=== PATIENT | male | born 1945 | race Caucasian/White ===

== ENCOUNTER 2017-12-27 10:21 | Outpatient (CLI) | payer MEDICARE, BC | END 2017-12-27 10:22 | disposition home or self-care (01) | LOC: LABBT 10:21 | PROVIDERS: ATTEND Orthopaedic Surgery | DX: Z01.818 Encounter for other preprocedural examination (principal); M17.11 Unilateral primary osteoarthritis, right knee | CPT/HCPCS: 86850; 86900; 86901; 87081 ==

== ENCOUNTER 2018-01-03 10:01 | Inpatient (IN) | payer MEDICARE, BC ==
[~2018-01-03 10:01] MED LIST: Ondansetron HCl/PF 4 MG/2 ML Vial ONE; PROPOFOL 200 MG/20 ML VIAL ONE; Ropivacaine 0.2% HCl/PF (40 MG/20 ML VIAL) ONE; Ropivacaine 0.5% HCl/PF (150 MG/30 ML VIAL) ONE
[2018-01-03] MEDS ORDERED: Midazolam HCl 2 mg/2 ml Vial ONE (10:36)
[2018-01-03] MEDS ORDERED: Fentanyl 100 MCG/2 ML VIAL ONE ×3 (10:36→16:10)
[2018-01-03] MEDS ORDERED: Clindamycin/D5W 600 mg/50 ml Premix Bag ONE (11:02)
[2018-01-03] MEDS ORDERED: Neomycin-Polymyxin 1 ML AMP ONE (12:19)
[2018-01-03] MEDS ORDERED: Bupivacaine HCl 0.5%/Epinephrine 1:200,000/PF 30 ml Vial ONE (12:20)
[2018-01-03] MEDS ORDERED: HYDROcodone/Acetaminophen 10/325 mg Tablet PO PRN ×2 (12:51)
[2018-01-03] MEDS ORDERED: Ropivacaine HCl/PF 250 ML in Premix Bag 1 BAG NERVE BLCK SCH (12:51)
[2018-01-03] MEDS ORDERED: Ondansetron HCl/PF 4 MG/2 ML Vial IVP PRN ×3 (12:51→16:59)
[2018-01-03] MEDS ORDERED: traMADol HCl 50 MG TAB PO PRN ×2 (12:51→15:20)
[2018-01-03] MEDS ORDERED: Promethazine HCl 25 MG/ML VIAL IM PRN ×3 (12:51→16:59)
[2018-01-03] MEDS ORDERED: Zolpidem Tartrate 5 MG TAB PO PRN ×2 (12:51→15:20)
[2018-01-03] MEDS ORDERED: Fentanyl 100 MCG/2 ML VIAL IV PRN (12:52)
[2018-01-03] MEDS ORDERED: diphenhydrAMINE 25 MG CAP PO PRN (15:20)
[2018-01-03] MEDS ORDERED: Acetaminophen 325 MG TAB PO PRN (15:20)
[2018-01-03] MEDS ORDERED: DEXTROMETHORPHAN PO PRN (15:23)
[2018-01-03] MEDS ORDERED: PROMETHAZINE PO PRN (15:23)
[2018-01-03] MEDS ORDERED: ALPRAZolam 0.5 MG TAB PO PRN (15:23)
[2018-01-03] MEDS ORDERED: guaiFENesin ER 600 MG TAB PO PRN (15:23)
[2018-01-03] MEDS ORDERED: Alendronate Sodium 70 mg Tablet PO SCH (15:30)
[2018-01-03] MEDS ORDERED: Promethazine HCl 25 MG/ML VIAL SLOW IVP PRN (16:59)
[2018-01-03] MEDS: Ketorolac Tromethamine 30 MG/ML VIAL IVP SCH ×2 (17:52→23:46)
[2018-01-03] MEDS: Clindamycin/D5W 900 MG in Premix Bag 1 BAG IVPB SCH ×2 (17:54→23:46)
[2018-01-03] MEDS: metFORMIN 500 MG TAB PO SCH (17:58)
--- NOTE | 2018-01-03 18:36 | RAD ---
2 VIEWS RIGHT KNEE: Date: 01/03/18 HISTORY: Right knee arthroplasty. FINDINGS: Postsurgical changes related to right total knee prosthesis are noted. The tibial component does lottie erse a fracture of the proximal right tibia and there is callus formation about the fracture with hor izontal lucencies within the proximal tibia likely related to prior postsurgical changes. Skin clips are seen medial to the knee, as well as anteriorly. There is prominent subcutaneous soft tissue swell ing and edema about the knee. Vascular calcifications seen posterior to the knee. IMPRESSION: 1. Postsurgical changes related to right total knee replacement. Tibial component does traverse a no n-union fracture of the proximal tibia. 2. Lucencies within the proximal tibia likely related to prior hardware in this region. 3. Subcutaneous edema and emphysema related to recent postsurgical change. POS: IMER
--- NOTE | 2018-01-03 18:40 | RAD ---
2 VIEWS RIGHT TIBIA AND FIBULA: Date: 01/03/18 HISTORY: Post right knee arthroplasty with long stem. Tibial nonunion. FINDINGS: There are postsurgical changes related to right total knee prosthesis. There is a long tibial compone nt which traverses a nonunion fracture of the proximal tibia. There is callus formation adjacent to t he fracture, but fracture lucency is present. There are horizontally oriented lucencies within the pr oximal tibia, as well as distal tibia, related to prior postsurgical change. Skin clips are seen medi al to the proximal and distal tibia. Skin clips are also seen anterior to the knee. Subcutaneous gardenia a seen about the knee. There are calcifications seen posterior to the knee, which could be related to interarticular loose b odies and associated overlying vascular calcifications. No acute fracture or dislocation seen. IMPRESSION: Postsurgical changes related to right total knee prosthesis. Long tibial component traverses a nonuni on fracture of the proximal tibia. POS: CHIARA
--- NOTE | 2018-01-03 19:31 | OP ---
DATE OF PROCEDURE: 01/03/2018 OPERATIONS: 1. Right tibia intramedullary nail removal. 2. Right total knee arthroplasty. 3. Bone graft to right tibia nonunion of fracture. PREOPERATIVE DIAGNOSIS: Right proximal tibia fracture nonunion with advanced right knee osteoarthrit is. POSTOPERATIVE DIAGNOSIS: Right proximal tibia fracture nonunion with advanced right knee osteoarthri tis. COMPLICATIONS: None. ESTIMATED BLOOD LOSS: Minimal to 100 mL. SURGEON: Rod Reed M.D. FAMILY HELPER: Suraj Sinclair PA-C. IMPLANTS: DePuy Sigma total knee arthroplasty with 150 mm size 14 stem on the tibia, size 4 tibia, s ize 5 PS femur, size 10 polyethylene, size 38 patella. INDICATIONS: Mr. Castro is a 72-year-old male who has advanced right knee arthritis as well as the p roximal tibia fracture. He has been treated extensively with casting as well as intramedullary nail for his fracture. This has resulted in nonunion. He has been indicated for a tibial nail removal an d conversion to a long stemmed tibia arthroplasty to treat his arthritis as well as his fracture. We also have indicated him for bone grafting of the tibia. Risks have been reviewed in detail. He has elected to proceed with the operation. DESCRIPTION OF PROCEDURE: Mr. Castro was identified in the preoperative holding area. His correct e xtremity was marked. He was carried to the operating room. He was positioned supine. General anest hesia was induced. A multidisciplinary timeout was performed. The right lower extremity was prepped and draped in sterile fashion. We began the procedure with an anterior approach to the knee. We dissected down through the subcutan eous tissues. A medial parapatellar approach was then created. We dissected down through the deep t issues and opened the joint. We performed a fat pad release as well as an anterior synovectomy. At this point, we everted the patella, we everted the patella. At this point, we resected the patella w ith an oscillating saw after sizing. We resected 9 mm of patellar bone. At this point, we then dril led for a 38 mm patellar button, protecting sleeve was placed. Next, we flexed the knee. We cleared the soft tissues and then resected our distal femur after entering the intramedullary canal of the d istal femur. Our appropriate guide was placed. We sized the femur at a size 5. We then made our an terior, posterior, and chamfer cuts using the 4-in-1 block. Finally, we made our box osteotomy using the appropriate guide. At this point, we focused on the tibia. We cleared the soft tissues and bone from the proximal tibia exposing the intramedullary nail. We screwed in a distracting device into the top of the tibial anisha l. We then removed the four distal cross lock screws from a proximal medial incision in a distal med ial incision. Once the screws were removed, we were able to back out the nail using a mallet. The n ail was completely removed. At this point, we prepared the tibia for our knee arthroplasty. We reamed the tibial canal to a size 14 mm reamer. We then placed our appropriate cutting guide proximally. We resected the proximal ti charlie to make the tibial plateau flat at the medial surface. We sized for a size 4 tibia plateau. At this point, we trialed. We had a good range of motion and fit with a 10 mm poly. The knee was stabl e. We thoroughly irrigated with copious lavage. We then made several drill holes in the medial aspect o f the tibia and eburnated bone. We then mixed cement on the back table. We assembled our final comp onents and these were impacted into the knee and tibia. The knee was held in extension while we plac ed the patellar component. We held the knee until fully hardened. At this point, we cleared any allyson ent and placed our final polyethylene component. Again, we thoroughly irrigated with copious lavage. Finally, we rongeured up the bone cut into small fragments. We used some further cancellous bone w hich was taken from the femur. We then identified the tibia nonunion along the posterior medial tibi a. We stimulated this with a saw as well as an osteotome. We then packed our bone graft along the t ibial nonunion site posterior medially. This was done for the nonunion of the fracture. We then irr igated this wound and closed appropriately in layers. The knee was closed with #2 Vicryl suture, 2-0 Vicryl suture and tabatha for the skin. A sterile dressing was applied to all wounds. The patient was taken to the recovery room in good condition without complication.
[2018-01-03] MEDS: Aspirin 81 mg Enteric Coated Tablet PO SCH (20:46)
[2018-01-03] MEDS: Finasteride 5 MG TAB PO SCH (20:47)
[2018-01-03] MEDS: Ferrous Gluconate 324 MG TAB PO SCH (20:47)
[2018-01-03] MEDS: Loratadine 10 MG TAB PO SCH (20:47)
[2018-01-03] MEDS: Tamsulosin HCl 0.4 MG CAP PO SCH (20:48)
[2018-01-03] MEDS: Montelukast Sodium 10 mg Tablet PO SCH (20:48)
[2018-01-03] MEDS: Donepezil HCl 10 MG TAB PO SCH (20:48)
[2018-01-03] MEDS: Benzonatate 100 MG CAP PO PRN (20:49)
[2018-01-03] MEDS: Pravastatin Sodium 40 MG TAB PO SCH (20:49)
[2018-01-03] MEDS: Senokot S 8.6-50 MG TAB PO SCH (20:49)
[2018-01-03] MEDS: Bupropion 100 MG SR TAB PO SCH (20:56)
[2018-01-03] MEDS: Fenofibrate Nanocrystallized 145 MG TAB PO SCH (20:56)
[2018-01-04] MEDS: Ketorolac Tromethamine 30 MG/ML VIAL IVP SCH ×4 (05:30→23:15)
[2018-01-04 05:56] LABS: Hemoglobin 10.2 g/dL (14.0-18.0); Mean Corpuscular HGB CONC 31.4 g/dL (32.0-36.0); Mean Corpuscular Hemoglobin 27.8 pg (27.0-31.0); Mean Corpuscular Volume 88.5 fL (78.0-98.0); Platelet Count 305 thou/uL (130-400); RBC Distribution Width 14.2 % (11.5-14.5); Red Blood Cell (RBC) Count 3.68 mill/uL (4.70-6.10); White Blood Cell (WBC) Count 14.4 thou/uL (4.8-10.8)
[2018-01-04] MEDS: glipiZIDE 5 MG TAB PO SCH (06:46)
[2018-01-04] MEDS: Pioglitazone HCl 15 MG TAB PO SCH (07:42)
[2018-01-04] MEDS: Ferrous Gluconate 324 MG TAB PO SCH ×2 (07:43→20:55)
[2018-01-04] MEDS: Aspirin 81 mg Enteric Coated Tablet PO SCH ×2 (07:43→20:54)
[2018-01-04] MEDS: metFORMIN 500 MG TAB PO SCH ×2 (07:43→17:18)
[2018-01-04] MEDS: Senokot S 8.6-50 MG TAB PO SCH ×2 (07:44→20:54)
[2018-01-04] MEDS: Vit A,C & E/Lutein/Minerals Tablet PO SCH (07:44)
[2018-01-04] MEDS: Multivitamin W/ Minerals 1 TAB PO SCH (07:45)
[2018-01-04] MEDS: Furosemide 20 MG TAB PO SCH (07:45)
[2018-01-04] MEDS: traMADol HCl 50 MG TAB PO PRN ×2 (08:46→08:51)
[2018-01-04] MEDS: Benzonatate 100 MG CAP PO PRN ×2 (08:48→18:50)
[2018-01-04] MEDS ORDERED: Dextrose 50% Abboject 50 ML SYRINGE SLOW IVP PRN (11:36)
[2018-01-04] MEDS ORDERED: Dextrose 5% in Water 1,000 ML IV PRN (11:36)
[2018-01-04] MEDS: HumaLOG 300 UNITS/3 ML VIAL SC PRN (16:04)
[2018-01-04] MEDS: Bupropion 100 MG SR TAB PO SCH ×2 (16:13→20:55)
--- NOTE | 2018-01-04 18:35 | CON ---
DATE OF CONSULTATION: 01/04/2018 CONSULTING PHYSICIAN: Dr. Reed. REASON FOR CONSULTATION: Medical management. HISTORY OF PRESENT ILLNESS: This patient is a 72-year-old male who has a history of significant dege nerative joint disease in his knee. The patient apparently had significant degenerative disease of t he right knee and was followed in [facility] by Dr. Mederos. The patient was apparently noted to have a proximal tibial fracture and he was referred to [place] where he underwent a pin and who le leg cast without significant union. He subsequently came here and saw Dr. Navarro who was cat ahn to pursue surgical correction. The patient has undergone removal of the medullary nail with a knee replacement including a long stem tibial portion. The patient is doing very well postoperatively. Does not have significant pain or other complaints. The patient reports that at home, his blood sugars are running in the 130s to 140s, which he consider s extremely high. REVIEW OF SYSTEMS: Negative except for the symptoms related to his knee. PAST MEDICAL HISTORY: 1. Notable for coronary artery disease. He reports that he had a 60% lesion in 1 vessel, but he did not get angioplasty or stent as he was told there was something to do with collateral blood vessels. 2. Hyperlipidemia. 3. Hypertension. 4. Diabetes mellitus. 5. Asthma, well controlled. PAST SURGICAL HISTORY: ORIF right leg with a tibial plateau fracture, herniorrhaphy, tonsillectomy. FAMILY HISTORY: Father of sudden , he believes must have been a LA. Mother with Alzh eimer's disease. SOCIAL HISTORY: The patient is a nonsmoker, nondrinker, nondrug user. He is for about 4 mon ths. ALLERGIES: PENICILLIN. CURRENT MEDICATIONS: Alendronate 70 mg every week, omeprazole 40 mg every day, bupropion 100 mg b.i. d., metformin 500 mg b.i.d., Lasix 20 mg b.i.d., Actos 30 mg every day, Vasotec 10 mg every day, Gluc otrol 0.5 mg every day, Patanase 1 spray per nostril at bedtime, multivitamin 1 every day, fenofibrat e 160 mg at bedtime, pravastatin 40 mg at bedtime, Aricept 1.5 tablets unknown mg 1 p.o. at bedtime, fexofenadine 180 mg at bedtime, Zoloft 1.5 mg at bedtime, Singulair 10 mg q.p.m., tamsulosin 0.4 mg a t bedtime, finasteride 5 mg at bedtime, Xanax 0.5 mg q.6 hours p.r.n., Tessalon Perles 100 mg t.i.d. , Ama 5/325 one p.o. q.6 hours p.r.n., Mucinex 600 mg daily, oxycodone 1-2 tabs q.4 hours p.r.n. an d Phenergan DM syrup 5 mL q.6 hours p.r.n. PHYSICAL EXAMINATION: VITAL SIGNS: Temperature is 97.8, pulse 92, respirations 16, O2 sat 96% on room air. GENERAL APPEARANCE: Age appropriate male. He is in no distress. He is awake, alert, and oriented, pleasant, cooperative. HEENT: PERRLA. No OP lesions. NECK: Supple and symmetric. CARDIOVASCULAR: Regular, without murmurs. LUNGS: Clear bilaterally with no wheezes or rales. ABDOMEN: Soft, nontender, nondistended, positive bowel sounds. EXTREMITIES: Warm and dry. Right knee has some postoperative dressing and brace on. He has good ca pillary refill distal. LABORATORY DATA: White count 14.4, hemoglobin 10.2, platelets 305. IMPRESSION AND PLAN: 1. Postoperative day #1 for right total knee replacement with a long stem tibial portion to overcome the prior tibial fracture with nonunion. Continue with the postop ortho plan. 2. Diabetes mellitus. We will add Accu-Cheks and sliding scale insulin and change him to a diabetic diet. 3. Hypertension. The patient's blood pressure is actually borderline. It looks like this is what i t was on his previous reading as well. The patient's only actual blood pressure medicine is the Vaso mahendra 10 mg which may be as much for renal protection and diabetes as it is lowering the blood pressure . We will need to continue to monitor his blood pressure, but it looks like it was relatively low on his preoperative evaluation as well. 4. Hyperlipidemia. Continue with his usual home medications. 5. History of asthma. The patient has no evidence of exacerbation presently. If he does, we can ad d some nebulizer treatments as needed. 6. History of coronary artery disease. We will keep him on his usual home regimen. It does not loo k like he is taking any aspirin which we will hold for the time being in the perioperative period, as it does not look like he has been chronically on this and his cardiac history is a little bit questi onable.
[2018-01-04] MEDS: Pravastatin Sodium 40 MG TAB PO SCH (20:53)
[2018-01-04] MEDS: Donepezil HCl 10 MG TAB PO SCH (20:54)
[2018-01-04] MEDS: Finasteride 5 MG TAB PO SCH (20:54)
[2018-01-04] MEDS: Tamsulosin HCl 0.4 MG CAP PO SCH (20:54)
[2018-01-04] MEDS: Loratadine 10 MG TAB PO SCH (20:55)
[2018-01-04] MEDS: Fenofibrate Nanocrystallized 145 MG TAB PO SCH (20:56)
[2018-01-04] MEDS: Montelukast Sodium 10 mg Tablet PO SCH (21:01)
[2018-01-05 05:37] LABS: Hemoglobin 9.7 g/dL (14.0-18.0); Mean Corpuscular HGB CONC 31.8 g/dL (32.0-36.0); Mean Corpuscular Hemoglobin 28.1 pg (27.0-31.0); Mean Corpuscular Volume 88.4 fL (78.0-98.0); Mean Platelet Volume 6.9 fL (7.4-10.4); Platelet Count 298 thou/uL (130-400); RBC Distribution Width 14.1 % (11.5-14.5); Red Blood Cell (RBC) Count 3.46 mill/uL (4.70-6.10); White Blood Cell (WBC) Count 15.3 thou/uL (4.8-10.8)
[2018-01-05] MEDS: glipiZIDE 5 MG TAB PO SCH (05:56)
[2018-01-05] MEDS: Ketorolac Tromethamine 30 MG/ML VIAL IVP SCH ×2 (05:57→11:33)
[2018-01-05] MEDS: HumaLOG 300 UNITS/3 ML VIAL SC PRN ×3 (06:02→17:09)
[2018-01-05] MEDS: Pioglitazone HCl 15 MG TAB PO SCH (08:20)
[2018-01-05] MEDS: Senokot S 8.6-50 MG TAB PO SCH ×2 (08:20→19:45)
[2018-01-05] MEDS: Multivitamin W/ Minerals 1 TAB PO SCH (08:20)
[2018-01-05] MEDS: Furosemide 20 MG TAB PO SCH (08:21)
[2018-01-05] MEDS: Ferrous Gluconate 324 MG TAB PO SCH ×2 (08:21→19:46)
[2018-01-05] MEDS: Vit A,C & E/Lutein/Minerals Tablet PO SCH (08:21)
[2018-01-05] MEDS: Aspirin 81 mg Enteric Coated Tablet PO SCH ×2 (08:21→19:46)
[2018-01-05] MEDS: metFORMIN 500 MG TAB PO SCH ×2 (08:21→17:08)
[2018-01-05] MEDS: Bupropion 100 MG SR TAB PO SCH ×2 (10:36→19:46)
[2018-01-05 13:55] LABS: Anion Gap 13 mmol/L (10-20); BUN (Urea Nitrogen) 26 mg/dL (8.4-25.7); Calc. Creatinine Clearance 74 mL/min (70-130); Carbon Dioxide 26 mmol/L (23-31); Chloride 102 mmol/L (98-107); Estimated GFR-MDRD 61; Glucose 174 mg/dL (83-110); Potassium 4.1 mmol/L (3.5-5.1); Sodium 137 mmol/L (136-145)
--- NOTE | 2018-01-05 19:12 | PDOC.PN ---
- Subjective Encounter Start Date: 01/05/18 Encounter Start Time: 19:10 Subjective: seen and examined at bedside. -: no new complaints except soreness at the operated knee -: no CP/SOB/palpitations/N/V/D/Abd pain - Objective MAR Reviewed: Yes Vital Signs & Weight: Vital Signs (12 hours) Temp Pulse Resp BP BP Pulse Ox 01/05/18 16:05 98.1 F 102 H 16 111/59 L 92 L 01/05/18 11:34 98.1 F 100 15 134/83 93 L 01/05/18 09:45 98.0 F 100 16 93 L 01/05/18 08:30 98.0 F 100 16 132/77 93 L 01/05/18 08:21 132/77 Weight Admit Weight 208 lb Weight 208 lb I&O: 01/04/18 01/05/18 01/06/18 06:59 06:59 06:59 Intake Total 1880 1040 Output Total 600 900 Balance 1280 140 Result Diagrams: 01/05/18 04:35 01/05/18 13:25 Additional Labs: Accuchecks 01/05/18 01/05/18 01/05/18 16:25 11:10 05:38 POC Glucose 173 H 285 H 191 H 01/04/18 20:49 POC Glucose 142 H Laboratory Tests 01/04/18 01/05/18 04:45 04:35 WBC 14.4 H 15.3 H Hgb 10.2 L 9.7 L labs reviewed Phys Exam - Physical Examination Constitutional: NAD HEENT: PERRLA, moist MMs, sclera anicteric, oral pharynx no lesions Neck: no nodes, no JVD, supple, full ROM Respiratory: no wheezing, no rales, no rhonchi, clear to auscultation bilateral Cardiovascular: RRR, no significant murmur, no rub Gastrointestinal: soft, non-tender, no distention, positive bowel sounds Musculoskeletal: no edema, pulses present Neurological: non-focal, normal sensation, moves all 4 limbs Psychiatric: normal affect, A&O x 3 Dx/Plan (1) Postoperative anemia Code(s): D64.9 - ANEMIA, UNSPECIFIED Status: Acute (2) Diabetes Code(s): E11.9 - TYPE 2 DIABETES MELLITUS WITHOUT COMPLICATIONS Status: Chronic Qualifiers: Diabetes mellitus type: type 2 (3) HTN (hypertension) Code(s): I10 - ESSENTIAL (PRIMARY) HYPERTENSION Status: Chronic (4) CAD (coronary artery disease) Code(s): I25.10 - ATHSCL HEART DISEASE OF [place] CORONARY ARTERY W/O ANG PCTRS Status: Chronic (5) S/P total knee arthroplasty Code(s): Z96.659 - PRESENCE OF UNSPECIFIED ARTIFICIAL KNEE JOINT Status: Acute Qualifiers: Laterality: right Qualified Code(s): Z96.651 - Presence of right artificial knee joint - Plan PT/OT, out of bed/ambulate, DVT proph w/SCDs Monitro H/H. -: ASA BID for dvt prophylaxis -: Blood sugar & BP controlled.monitor -: home meds as below. -: IM team will follow * . Review of Systems - Review of Systems Constitutional: weakness. negative: fever, chills, sweats, malaise, other Respiratory: negative: Cough, Dry, Shortness of Breath, Hemoptysis, SOB with Excertion, Pleuritic Pain, Sputum, Wheezing Cardiovascular: negative: chest pain, palpitations, orthopnea, paroxysmal nocturnal dyspnea, edema, light headedness, other Gastrointestinal: negative: Nausea, Vomiting, Abdominal Pain, Diarrhea, Constipation, Melena, Hematochezia, Other Genitourinary: negative: Dysuria, Frequency, Incontinence, Hematuria, Retention , Other Musculoskeletal: negative: Neck Pain, Shoulder Pain, Arm Pain, Back Pain, Hand Pain, Leg Pain, Foot Pain, Other Skin: negative: Rash, Lesions, Preet, Bruising, Other Neurological: negative: Weakness, Numbness, Incoordination, Change in Speech, Confusion, Seizures, Other - Medications/Allergies Allergies/Adverse Reactions: Allergies Allergy/AdvReac Type Severity Reaction Status Date / Time Penicillins Allergy Intermediate Verified 01/03/18 17:26 Medications: Current Medications Acetaminophen (Tylenol) 650 mg PO Q4H PRN PRN Reason: GUEVARA/ T > 101F; Mild Pain (1-3) Hydrocodone Bitart/Acetaminophen ([place] 10/325) 1 tab PO Q4H PRN PRN Reason: Pain (1-3) Last Admin: 01/05/18 17:10 Dose: 1 tab Hydrocodone Bitart/Acetaminophen ([place] 10/325) 2 tab PO Q4H PRN PRN Reason: PAIN (4-6) Alendronate Sodium (Fosamax) 70 mg PO Q7D [facility] Alprazolam (Xanax) 0.5 mg PO Q6H PRN PRN Reason: Anxiety Aspirin (Ecotrin) 81 mg PO BID [facility] Last Admin: 01/05/18 08:21 Dose: 81 mg Benzonatate (Tessalon) 100 mg PO TID PRN PRN Reason: Cough Last Admin: 01/04/18 18:50 Dose: 100 mg Bupropion HCl (Wellbutrin Sr) 100 mg PO BID [facility] Last Admin: 01/05/18 10:36 Dose: 100 mg Dextrose/Water (Dextrose 50%) 25 gm SLOW IVP PRN PRN PRN Reason: Hypoglycemia Diphenhydramine HCl (Benadryl) 25 mg PO Q6H PRN PRN Reason: Itching Donepezil HCl (Aricept) 15 mg PO HS [facility] Last Admin: 01/04/18 20:54 Dose: 15 mg Enalapril Maleate (Vasotec) 10 mg PO DAILY [facility] Last Admin: 01/05/18 08:21 Dose: 10 mg Fenofibrate (Tricor) 145 mg PO HS [facility] Last Admin: 01/04/18 20:56 Dose: 145 mg Fentanyl (Sublimaze) 50 mcg IV Q1H PRN PRN Reason: .BREAKTHROUGH PAIN Ferrous Gluconate (Fergon) 324 mg PO BID [facility] Last Admin: 01/05/18 08:21 Dose: 324 mg Finasteride (Proscar) 5 mg PO HS [facility] Last Admin: 01/04/18 20:54 Dose: 5 mg Furosemide (Lasix) 20 mg PO DAILY [facility] Last Admin: 01/05/18 08:21 Dose: 20 mg Glipizide (Glucotrol) 2.5 mg PO DAILY-AC [facility] Last Admin: 01/05/18 05:56 Dose: 2.5 mg Glucagon (Glucagon) 1 mg IM PRN PRN PRN Reason: Hypoglycemia Guaifenesin (Mucinex) 600 mg PO DAILY PRN PRN Reason: Cough Ropivacaine 250 ml/ Device 250 mls @ 10 mls/hr NERVE BLCK INF [facility] Last Admin: 01/04/18 17:19 Dose: 250 mls Dextrose/Water (D5w) 1,000 mls @ 0 mls/hr IV .Q0M PRN PRN Reason: Hypoglycemia Insulin Human Lispro (Humalog) 0 units SC .MILD SLIDING SCALE PRN PRN Reason: Mild Correctional Scale Last Admin: 01/05/18 17:09 Dose: 2 unit Iron/Minerals/Multivitamins (Theragran M) 1 tab PO DAILY [facility] Last Admin: 01/05/18 08:20 Dose: 1 tab Loratadine (Claritin) 10 mg PO [facility] Last Admin: 01/04/18 20:55 Dose: 10 mg Metformin HCl (Glucophage) 500 mg PO BID-[facility] Last Admin: 01/05/18 17:08 Dose: 500 mg Montelukast Sodium (Singulair) 10 mg PO QPM [facility] Last Admin: 01/04/18 21:01 Dose: Not Given Multivitamins/Minerals (Ocuvite With Lutein) 1 tab PO DAILY [facility] Last Admin: 01/05/18 08:21 Dose: 1 tab (Olopatadine Hcl [ (Patanase] 1 [place])) 1 spray EA NARE [facility] (Promethazine/Dextromethorphan [ Promethazine Dm Syrup] 5 Ml) 5 ml PO Q6HR PRN PRN Reason: Cough Ondansetron HCl (Zofran) 4 mg IVP Q6H PRN PRN Reason: Nausea/Vomiting Last Admin: 01/05/18 08:20 Dose: 4 mg Ondansetron HCl (Zofran) 4 mg IVP Q6H PRN PRN Reason: Nausea/Vomiting Pantoprazole Sodium (Protonix) 40 mg PO DAILY [facility] Last Admin: 01/05/18 08:21 Dose: 40 mg Pioglitazone HCl (Actos) 30 mg PO DAILY [facility] Last Admin: 01/05/18 08:20 Dose: 30 mg Pravastatin Sodium (Pravachol) 40 mg PO [facility] Last Admin: 01/04/18 20:53 Dose: 40 mg Promethazine HCl (Phenergan) 12.5 mg IM Q4H PRN PRN Reason: Nausea Promethazine HCl (Phenergan) 12.5 mg IM Q4H PRN PRN Reason: Nausea/Vomiting Senna/Docusate Sodium (Senokot S) 2 tab PO BID [facility] Last Admin: 01/05/18 08:20 Dose: 2 tab Sertraline HCl (Zoloft) 150 mg PO [facility] Last Admin: 01/04/18 20:55 Dose: 150 mg Sodium Chloride (Flush - Normal Saline) 10 ml IVF PRN PRN PRN Reason: Saline Flush Tamsulosin HCl (Flomax) 0.4 mg PO [facility] Last Admin: 01/04/18 20:54 Dose: 0.4 mg Tramadol HCl (Ultram) 50 mg PO Q6H PRN PRN Reason: Mild Pain (1-3) Tramadol HCl (Ultram) 100 mg PO Q6H PRN PRN Reason: Moderate Pain 4-6 Last Admin: 01/04/18 08:46 Dose: 100 mg Tramadol HCl (Ultram) 100 mg PO Q6H PRN PRN Reason: Mild Pain (1-3) Zolpidem Tartrate (Ambien) 5 mg PO HSPRN PRN PRN Reason: Insomnia Zolpidem Tartrate (Ambien) 5 mg PO HSPRN PRN PRN Reason: Insomnia
[2018-01-05] MEDS: Donepezil HCl 10 MG TAB PO SCH (19:44)
[2018-01-05] MEDS: Pravastatin Sodium 40 MG TAB PO SCH (19:45)
[2018-01-05] MEDS: Tamsulosin HCl 0.4 MG CAP PO SCH (19:45)
[2018-01-05] MEDS: Montelukast Sodium 10 mg Tablet PO SCH (19:45)
[2018-01-05] MEDS: Loratadine 10 MG TAB PO SCH (19:46)
[2018-01-05] MEDS: Finasteride 5 MG TAB PO SCH (19:46)
[2018-01-05] MEDS: Fenofibrate Nanocrystallized 145 MG TAB PO SCH (19:46)
[2018-01-06] MEDS: VIT D3 VIT K PO SCH ×2 (00:36→01:26)
[2018-01-06] MEDS: BERBERINE PO SCH ×2 (00:36→01:26)
[2018-01-06] MEDS: HOPS PO SCH ×2 (00:36→01:26)
[2018-01-06 04:37] LABS: Hemoglobin 8.9 g/dL (14.0-18.0); Mean Corpuscular HGB CONC 32.1 g/dL (32.0-36.0); Mean Corpuscular Hemoglobin 28.5 pg (27.0-31.0); Mean Corpuscular Volume 88.8 fL (78.0-98.0); Mean Platelet Volume 6.7 fL (7.4-10.4); Platelet Count 294 thou/uL (130-400); Red Blood Cell (RBC) Count 3.14 mill/uL (4.70-6.10); White Blood Cell (WBC) Count 15.1 thou/uL (4.8-10.8)
[2018-01-06] MEDS: Senokot S 8.6-50 MG TAB PO SCH ×2 (08:43→21:10)
[2018-01-06] MEDS: metFORMIN 500 MG TAB PO SCH ×2 (08:44→17:59)
[2018-01-06] MEDS: Furosemide 20 MG TAB PO SCH (08:44)
[2018-01-06] MEDS: Aspirin 81 mg Enteric Coated Tablet PO SCH ×2 (08:44→21:10)
[2018-01-06] MEDS: Vit A,C & E/Lutein/Minerals Tablet PO SCH (08:45)
[2018-01-06] MEDS: glipiZIDE 5 MG TAB PO SCH (08:45)
[2018-01-06] MEDS: Pioglitazone HCl 15 MG TAB PO SCH (08:45)
[2018-01-06] MEDS: Bupropion 100 MG SR TAB PO SCH ×2 (08:46→21:10)
[2018-01-06] MEDS: Ferrous Gluconate 324 MG TAB PO SCH ×2 (08:46→21:09)
[2018-01-06] MEDS: Multivitamin W/ Minerals 1 TAB PO SCH (08:46)
[2018-01-06 15:56] LABS: Hemoglobin 10.4 g/dL (14.0-18.0); Mean Corpuscular Hemoglobin 28.2 pg (27.0-31.0); Mean Corpuscular Volume 88.2 fL (78.0-98.0); Platelet Count 384 thou/uL (130-400); RBC Distribution Width 14.3 % (11.5-14.5); Red Blood Cell (RBC) Count 3.69 mill/uL (4.70-6.10); White Blood Cell (WBC) Count 16.4 thou/uL (4.8-10.8)
--- NOTE | 2018-01-06 16:09 | PDOC.PN ---
- Subjective Encounter Start Date: 01/06/18 Encounter Start Time: 16:09 -: feels light headed\ -: RN called for low BP & +ve orthostatic - Objective MAR Reviewed: Yes Vital Signs & Weight: Vital Signs (12 hours) Temp Pulse Resp BP BP Pulse Ox 01/06/18 15:33 97.5 F L 108 H 20 110/66 95 01/06/18 11:08 97.9 F 109 H 18 129/72 91 L 01/06/18 07:35 97.6 F 105 H 22 H 109/67 92 L 01/06/18 04:51 98.1 F 106 H 16 108/63 91 L Weight Admit Weight 208 lb Weight 208 lb I&O: 01/05/18 01/06/18 01/07/18 06:59 06:59 06:59 Intake Total 1040 410 Output Total 900 900 Balance 140 -490 Result Diagrams: 01/06/18 15:38 01/05/18 13:25 Additional Labs: Accuchecks 01/06/18 01/05/18 01/05/18 05:49 20:57 16:25 POC Glucose 176 H 214 H 173 H Radiology Reviewed by me: Yes EKG Reviewed by me: Yes (sinus tachy w PVC) Phys Exam - Physical Examination Constitutional: NAD HEENT: PERRLA, moist MMs, sclera anicteric, TM's clear, oral pharynx no lesions , 2+ tonsils Neck: no nodes, no JVD, supple, full ROM Respiratory: no wheezing, no rhonchi few basilar rales Cardiovascular: RRR, no significant murmur Gastrointestinal: soft, non-tender, no distention, positive bowel sounds Musculoskeletal: no edema, pulses present Neurological: non-focal, normal sensation, moves all 4 limbs Psychiatric: normal affect, A&O x 3 Skin: no rash Dx/Plan (1) Hypotension Status: Acute (2) Postoperative anemia Code(s): D64.9 - ANEMIA, UNSPECIFIED Status: Acute Comment: H/H improved (3) Diabetes Code(s): E11.9 - TYPE 2 DIABETES MELLITUS WITHOUT COMPLICATIONS Status: Chronic Qualifiers: Diabetes mellitus type: type 2 (4) HTN (hypertension) Code(s): I10 - ESSENTIAL (PRIMARY) HYPERTENSION Status: Chronic (5) CAD (coronary artery disease) Code(s): I25.10 - ATHSCL HEART DISEASE OF [place] CORONARY ARTERY W/O ANG PCTRS Status: Chronic (6) S/P total knee arthroplasty Code(s): Z96.659 - PRESENCE OF UNSPECIFIED ARTIFICIAL KNEE JOINT Status: Acute Qualifiers: Laterality: right Qualified Code(s): Z96.651 - Presence of right artificial knee joint - Plan DVT proph w/SCDs get Cardiac enzymes,BNP stat. -: CXR stat and if no Pulm edema, will start IVF -: Does not look septic but will get UA and Blood cx -: add duonebs prn -: if Bp persistantly low-will transfer to tele. * . Review of Systems - Review of Systems Constitutional: weakness, malaise. negative: fever, chills, sweats, other Respiratory: negative: Cough, Dry, Shortness of Breath, Hemoptysis, SOB with Excertion, Pleuritic Pain, Sputum, Wheezing Cardiovascular: light headedness. negative: chest pain, palpitations, orthopnea , paroxysmal nocturnal dyspnea, edema, other Gastrointestinal: negative: Nausea, Vomiting, Abdominal Pain, Diarrhea, Constipation, Melena, Hematochezia, Other Genitourinary: negative: Dysuria, Frequency, Incontinence, Hematuria, Retention , Other Musculoskeletal: negative: Neck Pain, Shoulder Pain, Arm Pain, Back Pain, Hand Pain, Leg Pain, Foot Pain, Other Skin: negative: Rash, Lesions, Preet, Bruising, Other Neurological: negative: Weakness, Numbness, Incoordination, Change in Speech, Confusion, Seizures, Other - Medications/Allergies Allergies/Adverse Reactions: Allergies Allergy/AdvReac Type Severity Reaction Status Date / Time Penicillins Allergy Intermediate Verified 01/03/18 17:26 Medications: Current Medications Acetaminophen (Tylenol) 650 mg PO Q4H PRN PRN Reason: GUEVARA/ T > 101F; Mild Pain (1-3) Hydrocodone Bitart/Acetaminophen ([place] 10/325) 1 tab PO Q4H PRN PRN Reason: Pain (1-3) Last Admin: 01/05/18 17:10 Dose: 1 tab Hydrocodone Bitart/Acetaminophen ([place] 10/325) 2 tab PO Q4H PRN PRN Reason: PAIN (4-6) Albuterol/Ipratropium (Duoneb) 3 ml NEB [id number] PRN PRN Reason: SOB &/or Wheezing Alprazolam (Xanax) 0.5 mg PO Q6H PRN PRN Reason: Anxiety Aspirin (Ecotrin) 81 mg PO BID [facility] Last Admin: 01/06/18 08:44 Dose: 81 mg Benzonatate (Tessalon) 100 mg PO TID PRN PRN Reason: Cough Last Admin: 01/04/18 18:50 Dose: 100 mg Bupropion HCl (Wellbutrin Sr) 100 mg PO BID [facility] Last Admin: 01/06/18 08:46 Dose: 100 mg Dextrose/Water (Dextrose 50%) 25 gm SLOW IVP PRN PRN PRN Reason: Hypoglycemia Diphenhydramine HCl (Benadryl) 25 mg PO Q6H PRN PRN Reason: Itching Donepezil HCl (Aricept) 15 mg PO [facility] Last Admin: 01/05/18 19:44 Dose: 15 mg Enalapril Maleate (Vasotec) 10 mg PO DAILY [facility] Fenofibrate (Tricor) 145 mg PO HS [facility] Last Admin: 01/05/18 19:46 Dose: 145 mg Fentanyl (Sublimaze) 50 mcg IV Q1H PRN PRN Reason: .BREAKTHROUGH PAIN Ferrous Gluconate (Fergon) 324 mg PO BID [facility] Last Admin: 01/06/18 08:46 Dose: 324 mg Finasteride (Proscar) 5 mg PO [facility] Last Admin: 01/05/18 19:46 Dose: 5 mg Furosemide (Lasix) 20 mg PO DAILY [facility] Last Admin: 01/06/18 08:44 Dose: 20 mg Glipizide (Glucotrol) 2.5 mg PO DAILY-AC [facility] Last Admin: 01/06/18 08:45 Dose: 2.5 mg Glucagon (Glucagon) 1 mg IM PRN PRN PRN Reason: Hypoglycemia Guaifenesin (Mucinex) 600 mg PO DAILY PRN PRN Reason: Cough Ropivacaine 250 ml/ Device 250 mls @ 10 mls/hr NERVE BLCK INF [facility] Last Admin: 01/04/18 17:19 Dose: 250 mls Dextrose/Water (D5w) 1,000 mls @ 0 mls/hr IV .Q0M PRN PRN Reason: Hypoglycemia Insulin Human Lispro (Humalog) 0 units SC .MILD SLIDING SCALE PRN PRN Reason: Mild Correctional Scale Last Admin: 01/05/18 17:09 Dose: 2 unit Iron/Minerals/Multivitamins (Theragran M) 1 tab PO DAILY [facility] Last Admin: 01/06/18 08:46 Dose: 1 tab Loratadine (Claritin) 10 mg PO [facility] Last Admin: 01/05/18 19:46 Dose: 10 mg Metformin HCl (Glucophage) 500 mg PO BID-[facility] Last Admin: 01/06/18 08:44 Dose: 500 mg Montelukast Sodium (Singulair) 10 mg PO QPM [facility] Last Admin: 01/05/18 19:45 Dose: 10 mg Multivitamins/Minerals (Ocuvite With Lutein) 1 tab PO DAILY [facility] Last Admin: 01/06/18 08:45 Dose: 1 tab (Olopatadine Hcl [ (Patanase] 1 [place])) 1 spray [facility] (Promethazine/Dextromethorphan [ Promethazine Dm Syrup] 5 Ml) 5 ml PO Q6HR PRN PRN Reason: Cough Ondansetron HCl (Zofran) 4 mg IVP Q6H PRN PRN Reason: Nausea/Vomiting Last Admin: 01/05/18 08:20 Dose: 4 mg Ondansetron HCl (Zofran) 4 mg IVP Q6H PRN PRN Reason: Nausea/Vomiting Pantoprazole Sodium (Protonix) 40 mg PO DAILY [facility] Last Admin: 01/06/18 08:44 Dose: 40 mg Pioglitazone HCl (Actos) 30 mg PO DAILY [facility] Last Admin: 01/06/18 08:45 Dose: 30 mg Pravastatin Sodium (Pravachol) 40 mg PO [facility] Last Admin: 01/05/18 19:45 Dose: 40 mg Promethazine HCl (Phenergan) 12.5 mg IM Q4H PRN PRN Reason: Nausea Promethazine HCl (Phenergan) 12.5 mg IM Q4H PRN PRN Reason: Nausea/Vomiting Senna/Docusate Sodium (Senokot S) 2 tab PO BID [facility] Last Admin: 01/06/18 08:43 Dose: 2 tab Sertraline HCl (Zoloft) 150 mg PO [facility] Last Admin: 01/05/18 19:45 Dose: 150 mg Sodium Chloride (Flush - Normal Saline) 10 ml IVF PRN PRN PRN Reason: Saline Flush Tramadol HCl (Ultram) 50 mg PO Q6H PRN PRN Reason: Mild Pain (1-3) Tramadol HCl (Ultram) 100 mg PO Q6H PRN PRN Reason: Moderate Pain 4-6 Last Admin: 01/04/18 08:46 Dose: 100 mg Tramadol HCl (Ultram) 100 mg PO Q6H PRN PRN Reason: Mild Pain (1-3) Zolpidem Tartrate (Ambien) 5 mg PO HSPRN PRN PRN Reason: Insomnia Zolpidem Tartrate (Ambien) 5 mg PO HSPRN PRN PRN Reason: Insomnia
[2018-01-06 16:34] LABS: Lymphocytes 11 % (21-51); MDiff Complete? YES; Monocytes 7 % (0-10); Neutrophil 82 % (42-75); Ovalocytes SLIGHT = 2-5 cells (100X) (0-1/hpf); PLT Morphology Comment Appears Adequate; Polychromasia MODERATE = 3-4 cells (100X) (0-2/hpf)
[2018-01-06 17:19] LABS: CKMB 2.1 ng/mL (0-6.6); Troponin I 0.027 ng/mL (< 0.028)
--- NOTE | 2018-01-06 17:49 | RAD ---
CHEST ONE VIEW PORTABLE: 01/06/18 INDICATION: Concern for pulmonary edema. COMPARISON: None. IMPRESSION: Right basilar atelectasis versus scarring. Low lung volumes. COMMENTS: No consolidation is evident. There is a linear density seen within the right lower lobe suspicious fo r scar versus atelectasis. The hypoventilation accentuates the cardiac silhouette and pulmonary vascu lature. No beth pleural effusion, pulmonary edema, or pneumothorax is evident. No acute osseous abno rmality is noted. POS: [facility]
[2018-01-06] MEDS: HumaLOG 300 UNITS/3 ML VIAL SC PRN (17:59)
[2018-01-06] MEDS: Sodium Chloride 0.9% 1,000 ML IV SCH (19:15)
[2018-01-06] MEDS: Montelukast Sodium 10 mg Tablet PO SCH (21:09)
[2018-01-06] MEDS: Loratadine 10 MG TAB PO SCH (21:09)
[2018-01-06] MEDS: Donepezil HCl 10 MG TAB PO SCH (21:09)
[2018-01-06] MEDS: Finasteride 5 MG TAB PO SCH (21:10)
[2018-01-06] MEDS: Pravastatin Sodium 40 MG TAB PO SCH (21:10)
[2018-01-06] MEDS: Fenofibrate Nanocrystallized 145 MG TAB PO SCH (21:10)
[2018-01-07 02:55] LABS: Bilirubin Negative (Negative); Blood, Urine Negative (Negative); Clarity CLEAR (Clear); Glucose, Urine (Dipstick) Negative (Negative); Leukocyte Small (Negative); Nitrite Negative (Negative); Protein, Urine (Dipstick) Negative (Neg-Trace); Urobilinogen 0.2 mg/dL (0.2-1.0); pH, Urine 5.5 (5.0-9.0)
[2018-01-07 03:00] LABS: Bacteria/HPF None Seen HPF (None Seen); Hyaline Casts/LPF 4-6 HYALINE CAST LPF (0-3 Hyaline); Pathc Cast-AUWi Flag 0.87 (0-2.49); Squamous Epithelial 0-3 HPF (0-3); WBC/HPF 0-3 HPF (0-3)
[2018-01-07 05:26] LABS: Hemoglobin 8.9 g/dL (14.0-18.0); Mean Corpuscular HGB CONC 31.7 g/dL (32.0-36.0); Mean Corpuscular Hemoglobin 27.9 pg (27.0-31.0); Mean Corpuscular Volume 87.9 fL (78.0-98.0); Mean Platelet Volume 6.7 fL (7.4-10.4); Platelet Count 352 thou/uL (130-400); RBC Distribution Width 14.1 % (11.5-14.5); White Blood Cell (WBC) Count 11.6 thou/uL (4.8-10.8)
[2018-01-07 05:27] LABS: #Eosinphils 0.1 thou/uL (0.0-0.7); #Lymphocytes 1.9 thou/uL (1.20-3.40); #Monocytes 1.2 thou/uL (0.11-0.59); #Neutrophils 7.9 thou/uL (1.40-6.50); %Basophils 0.2 % (0.0-1.0); %Eosinophils 1.2 % (0.0-10.0); %Lymphocytes 17.2 % (21.0-51.0); %Monocytes 10.9 % (0.0-10.0); %Neutrophils 70.4 % (42.0-75.0); Mean Corpuscular HGB CONC 31.7 g/dL (32.0-36.0); Mean Corpuscular Hemoglobin 27.8 pg (27.0-31.0); Mean Corpuscular Volume 87.8 fL (78.0-98.0); Mean Platelet Volume 6.7 fL (7.4-10.4); Platelet Count 366 thou/uL (130-400); RBC Distribution Width 14.2 % (11.5-14.5); Red Blood Cell (RBC) Count 3.22 mill/uL (4.70-6.10); White Blood Cell (WBC) Count 11.3 thou/uL (4.8-10.8)
[2018-01-07 05:32] LABS: Anion Gap 11 mmol/L (10-20); BUN (Urea Nitrogen) 28 mg/dL (8.4-25.7); Calc. Creatinine Clearance 88 mL/min (70-130); Calcium 10.1 mg/dL (7.8-10.44); Carbon Dioxide 29 mmol/L (23-31); Chloride 102 mmol/L (98-107); Estimated GFR-MDRD 73; Glucose 160 mg/dL (83-110); Potassium 3.6 mmol/L (3.5-5.1); Sodium 138 mmol/L (136-145)
[2018-01-07] MEDS: metFORMIN 500 MG TAB PO SCH ×2 (09:31→18:13)
[2018-01-07] MEDS: Senokot S 8.6-50 MG TAB PO SCH (09:31)
[2018-01-07] MEDS: Vit A,C & E/Lutein/Minerals Tablet PO SCH (09:31)
[2018-01-07] MEDS: Furosemide 20 MG TAB PO SCH (09:31)
[2018-01-07] MEDS: Ferrous Gluconate 324 MG TAB PO SCH (09:31)
[2018-01-07] MEDS: Pioglitazone HCl 15 MG TAB PO SCH (09:31)
[2018-01-07] MEDS: Aspirin 81 mg Enteric Coated Tablet PO SCH ×2 (09:32→21:04)
[2018-01-07] MEDS: glipiZIDE 5 MG TAB PO SCH (09:32)
[2018-01-07] MEDS: Multivitamin W/ Minerals 1 TAB PO SCH (09:32)
[2018-01-07 12:19] VITALS: BMI 31.8
[2018-01-07] MEDS: HumaLOG 300 UNITS/3 ML VIAL SC PRN (12:40)
[2018-01-07] MEDS: Bupropion 100 MG SR TAB PO SCH ×2 (12:40→21:01)
--- NOTE | 2018-01-07 12:48 | RAD ---
CHEST ONE VIEW: History: Chest pain. Comparison: 01-06-18 FINDINGS: Cardiac silhouette is magnified by projection. Pulmonary vasculature upper limits of normal, slightly more pronounced than on the prior study as are diffuse reticular nodular interstitial opacities. Sha llow inspiration accentuates pulmonary markings. No evidence of pneumothorax. Mediastinum remains mid line. IMPRESSION: Slight interval increase in pulmonary vascular prominence. Findings are otherwise stable. POS: [facility]
[2018-01-07] MEDS: Sodium Chloride 0.9% 1,000 ML IV SCH ×2 (12:53→18:13)
[2018-01-07 13:27] LABS: Anion Gap 14 mmol/L (10-20); BUN (Urea Nitrogen) 24 mg/dL (8.4-25.7); Calc. Creatinine Clearance 76 mL/min (70-130); Calcium 10.2 mg/dL (7.8-10.44); Carbon Dioxide 24 mmol/L (23-31); Chloride 102 mmol/L (98-107); Estimated GFR-MDRD 66; Glucose 261 mg/dL (83-110); Potassium 3.9 mmol/L (3.5-5.1); Sodium 136 mmol/L (136-145)
[2018-01-07 13:34] LABS: CKMB 2.1 ng/mL (0-6.6); Troponin I Less than 0.010 ng/mL (< 0.028)
[2018-01-07 13:37] LABS: Hemoglobin 10.6 g/dL (14.0-18.0); Mean Corpuscular HGB CONC 31.9 g/dL (32.0-36.0); Mean Corpuscular Hemoglobin 28.1 pg (27.0-31.0); Mean Corpuscular Volume 88.1 fL (78.0-98.0); Mean Platelet Volume 7.4 fL (7.4-10.4); Platelet Count 436 thou/uL (130-400); RBC Distribution Width 14.3 % (11.5-14.5); Red Blood Cell (RBC) Count 3.76 mill/uL (4.70-6.10); White Blood Cell (WBC) Count 14.1 thou/uL (4.8-10.8)
[2018-01-07 13:59] LABS: Band 2 % (5-11); Lymphocytes 18 % (21-51); MDiff Complete? YES; Monocytes 9 % (0-10); Neutrophil 71 % (42-75); PLT Morphology Comment Appears Increased; Polychromasia SLIGHT = 2-3 cells (100X) (0-2/hpf)
--- NOTE | 2018-01-07 14:41 | CON ---
DATE OF CONSULTATION: 01/07/2018 REASON FOR CONSULTATION: Tachycardia. HISTORY OF PRESENT ILLNESS: Mr. Castro is a very pleasant 72-year-old white gentleman who comes to the hospital for a planned surgical intervention. He had his procedure done Wednesday of this week. He had a removal of a medullary nail with new replacement including a long tibial portion. He did well postoperatively yesterday. He started to get sinus tachycardia on telemetry and has been between 90 and 120 since then. He is also noted that his baseline shortness of breath has increased. She has underlying bronchial asthma and he is short of breath most of the time, he states that he has been getting nebs in the last couple days and he has noticed mild improvement in his symptoms. Otherwise, he denies any chest pain, tightness, pressure. No lower extremity edema. PAST MEDICAL HISTORY: 1. Moderate coronary artery disease. He tells me that 2 years ago he was told he had a 60% lesion in one of his heart arteries. 2. Hyperlipidemia. 3. Hypertension. 4. Type 2 diabetes. 5. Bronchial asthma. PAST SURGICAL HISTORY: 1. ORIF of the right leg with tibial plateau fracture. 2. Hernia repair. 3. Tonsillectomy. FAMILY HISTORY: Father had sudden cardiac . Mother with Alzheimer's. SOCIAL HISTORY: No alcohol, tobacco or drugs. . OUTPATIENT MEDICATIONS: 1. Promethazine. 2. Percocet. 3. Mucinex. 4. [place] p.r.n. 5. Tessalon Perles. 6. Xanax. 7. Proscar. 8. Flomax. 9. Singulair. 10. Zoloft. 11. Yojana. 12. Aricept. 13. Pravastatin. 14. Fenofibrate. 15. Vitamin D3. 16. Multivitamin. 17. Patanase, which is olopatadine nasal sprays. 18. Glipizide. 19. Enalapril 10 mg a day. 20. Actos. 21. Lasix 20 mg a day. 22. Metformin 500 mg b.i.d. 23. Bupropion. 24. Omeprazole. 25. Alendronate. 26. Aspirin 81 a day. ALLERGIES: PENICILLIN. REVIEW OF SYSTEMS: A 12-point review of systems was done and is all negative unless stated in history of present illness. PHYSICAL EXAMINATION: VITAL SIGNS: Temperature 98.6, pulse between 100 and 130, respiratory rate 24 earlier today, satting 97% on 2 liters, blood pressure ranging from 120-130s/ 70s. GENERAL: Awake, alert, oriented x3, in no distress. HEENT: Normocephalic, atraumatic. NECK: Supple. LUNGS: Clear, but reduced breath sounds. CARDIOVASCULAR: S1, S2, no S3, S4, no murmurs. ABDOMEN: Soft, positive bowel sounds. EXTREMITIES: Trace edema. SKIN: Warm and dry. LABORATORY WORK: Reviewed. White count of 14, hemoglobin of 10, hematocrit of 33, platelet count of 436. His white count has been ranging from 11-14. D- dimer was a little bit higher earlier today; however, this is expected in somebody who is postop. Chemistry is unremarkable except for glucose of 261. His calcium was normal. Troponin was negative x1. CK-MB was normal x1. BNP was in the mid 200 range. EKG was reviewed, sinus. ASSESSMENT AND PLAN: 1. Sinus tachycardia: Concern for pulmonary embolism. We will get a CT per PE protocol. I spoke with Dr. Reed about the possibility of doing full anticoagulation. Given his recent surgical intervention, it would be preferred not to, so we will wait to have results of the CT before starting full anticoagulation. Otherwise, he has been on sequential compression devices for DVT prophylaxis. 2. Other possibilities would be the nebs that he has been getting may make him tachycardic. I see that these have already been discontinued. I agree with this. 3. Development of an infection on his surgical site would make him tachycardic. This would also make his white count go up. His blood cultures have remained negative. 4. I do not see any other medication that would make him tachycardic. Thank you for letting us participate in the care of your patient. We will follow closely. JANAY
[2018-01-07] MEDS ORDERED: ISOVUE-370 76%-LOCM 1 ML ONE (14:47)
--- NOTE | 2018-01-07 15:20 | CT ---
CT PULMONARY ANGIOGRAM WITH IV CONTRAST AND 3D POSTPROCESSING: Date: 01/07/18 HISTORY: Shortness of breath. FINDINGS: No filling defects are seen in the contrast opacified pulmonary arterial vasculature to suggest pulmo nary embolism. Vascular calcifications are present without thoracic aortic aneurysm or dissection. No pleural or pericardial effusions are identified. There are dependent changes in the lung bases. No p neumothoraces or lobar consolidation seen. There are degenerative changes in the spine. Upper abdomin al tomograms demonstrate calcified gallstones. IMPRESSION: 1. No evidence of pulmonary embolism. 2. Cholelithiasis. POS: [facility]
--- NOTE | 2018-01-07 16:54 | PDOC.PN ---
- Subjective Encounter Start Date: 01/07/18 Encounter Start Time: 12:00 Pt seen for followup re: sinus tachycardia. Pt denies chest pain or shortness of breath. No nausea or vomiting. - Objective MAR Reviewed: Yes Vital Signs & Weight: Vital Signs (12 hours) Temp Temp Pulse Pulse Pulse Pulse Resp 01/07/18 15:27 97.9 F 110 H 22 H 01/07/18 12:15 98.6 F 131 H 20 01/07/18 11:34 97.2 F L 175 H 124 H 118 H 01/07/18 08:00 98.6 F 131 H 24 H 01/07/18 07:45 97.7 F 100 18 Resp Resp Resp BP BP BP BP 01/07/18 15:27 01/07/18 12:15 119/62 01/07/18 11:34 22 H 24 H 24 H 132/73 116/78 119/62 01/07/18 08:00 01/07/18 07:45 142/66 H BP Pulse Ox Pulse Ox Pulse Ox Pulse Ox 01/07/18 15:27 122/57 L 98 01/07/18 12:15 97 01/07/18 11:34 96 98 97 01/07/18 08:00 01/07/18 07:45 95 Weight Admit Weight 208 lb Weight 197 lb 4.8 oz I&O: 01/06/18 01/07/18 01/08/18 06:59 06:59 06:59 Intake Total 410 1600 Output Total 900 3 Balance -490 1597 Result Diagrams: 01/10/18 04:22 01/09/18 04:20 Additional Labs: Accuchecks 01/07/18 01/07/18 01/06/18 11:07 05:54 20:41 POC Glucose 252 H 158 H 238 H 01/06/18 15:31 POC Glucose 171 H EKG Reviewed by me: Yes (EKG: sinus tachycardia) Phys Exam - Physical Examination Obese HEENT: moist MMs Neck: supple Respiratory: clear to auscultation bilateral S1, S2, reg, tachy Gastrointestinal: soft, non-tender Neurological: moves all 4 limbs Psychiatric: normal affect Dx/Plan (1) Sinus tachycardia Code(s): R00.0 - TACHYCARDIA, UNSPECIFIED Status: Acute Comment: monitor on tele. will continue cardizem po. will continue to follow cardiology's recs. (2) CAD (coronary artery disease) Code(s): I25.10 - ATHSCL HEART DISEASE OF [place] CORONARY ARTERY W/O ANG PCTRS Status: Chronic Comment: stable. (3) Diabetes Code(s): E11.9 - TYPE 2 DIABETES MELLITUS WITHOUT COMPLICATIONS Status: Chronic Qualifiers: Diabetes mellitus type: type 2 Comment: controll sugars (4) HTN (hypertension) Code(s): I10 - ESSENTIAL (PRIMARY) HYPERTENSION Status: Chronic Comment: controlled - Plan * . Review of Systems - Review of Systems Respiratory: negative: Cough, Shortness of Breath, SOB with Excertion, Pleuritic Pain, Wheezing Cardiovascular: negative: chest pain, palpitations, orthopnea, paroxysmal nocturnal dyspnea, edema, light headedness - Medications/Allergies Allergies/Adverse Reactions: Allergies Allergy/AdvReac Type Severity Reaction Status Date / Time Penicillins Allergy Intermediate Verified 01/03/18 17:26 Medications: Current Medications Acetaminophen (Tylenol) 650 mg PO Q4H PRN PRN Reason: GUEVAR[place]/ T > 101F; Mild Pain (1-3) Hydrocodone Bitart/Acetaminophen ([place] 10/325) 1 tab PO Q4H PRN PRN Reason: Pain (1-3) Last Admin: 01/05/18 17:10 Dose: 1 tab Hydrocodone Bitart/Acetaminophen ([place] 10/325) 2 tab PO Q4H PRN PRN Reason: PAIN (4-6) Albuterol/Ipratropium (Duoneb) 3 ml NEB [id number] PRN PRN Reason: SOB &/or Wheezing Last Admin: 01/06/18 04:00 Dose: 3 ml Alprazolam (Xanax) 0.5 mg PO Q6H PRN PRN Reason: Anxiety Aspirin (Ecotrin) 81 mg PO BID [facility] Last Admin: 01/07/18 09:32 Dose: 81 mg Benzonatate (Tessalon) 100 mg PO TID PRN PRN Reason: Cough Last Admin: 01/04/18 18:50 Dose: 100 mg Bupropion HCl (Wellbutrin Sr) 100 mg PO BID [facility] Last Admin: 01/07/18 12:40 Dose: 100 mg Dextrose/Water (Dextrose 50%) 25 gm SLOW IVP PRN PRN PRN Reason: Hypoglycemia Diphenhydramine HCl (Benadryl) 25 mg PO Q6H PRN PRN Reason: Itching Donepezil HCl (Aricept) 15 mg PO [facility] Last Admin: 01/06/18 21:09 Dose: 15 mg Enalapril Maleate (Vasotec) 10 mg PO DAILY [facility] Last Admin: 01/07/18 09:32 Dose: 10 mg Fenofibrate (Tricor) 145 mg PO HS [facility] [place] Last Admin: 01/06/18 21:10 Dose: 145 mg Fentanyl (Sublimaze) 50 mcg IV Q1H PRN PRN Reason: .BREAKTHROUGH PAIN Ferrous Gluconate (Fergon) 324 mg PO BID [facility] Last Admin: 01/07/18 09:31 Dose: 324 mg Finasteride (Proscar) 5 mg PO [facility] Last Admin: 01/06/18 21:10 Dose: 5 mg Furosemide (Lasix) 20 mg PO DAILY [facility] [place] Last Admin: 01/07/18 09:31 Dose: 20 mg Glipizide (Glucotrol) 2.5 mg PO DAILY[facility] Last Admin: 01/07/18 09:32 Dose: 2.5 mg Glucagon (Glucagon) 1 mg IM PRN PRN PRN Reason: Hypoglycemia Guaifenesin (Mucinex) 600 mg PO DAILY PRN PRN Reason: Cough Ropivacaine 250 ml/ Device 250 mls @ 10 mls/hr NERVE BLCK INF [facility] Last Admin: 01/04/18 17:19 Dose: 250 mls Dextrose/Water (D5w) 1,000 mls @ 0 mls/hr IV .Q0M PRN PRN Reason: Hypoglycemia Sodium Chloride (Normal Saline 0.9%) 1,000 mls @ 50 mls/hr IV .Q20H [facility] [place] Last Admin: 01/07/18 12:53 Dose: 1,000 mls Insulin Human Lispro (Humalog) 0 units SC .MILD SLIDING SCALE PRN PRN Reason: Mild Correctional Scale Last Admin: 01/07/18 12:40 Dose: 4 unit Iron/Minerals/Multivitamins (Theragran M) 1 tab PO DAILY [facility] [place] Last Admin: 01/07/18 09:32 Dose: 1 tab Loratadine (Claritin) 10 mg PO [facility] Last Admin: 01/06/18 21:09 Dose: 10 mg Metformin HCl (Glucophage) 500 mg PO BID-[facility] Last Admin: 01/07/18 09:31 Dose: 500 mg Montelukast Sodium (Singulair) 10 mg PO QPM [facility] Last Admin: 01/06/18 21:09 Dose: 10 mg Multivitamins/Minerals (Ocuvite With Lutein) 1 tab PO DAILY [facility] Last Admin: 01/07/18 09:31 Dose: 1 tab Ondansetron HCl (Zofran) 4 mg IVP Q6H PRN PRN Reason: Nausea/Vomiting Last Admin: 01/05/18 08:20 Dose: 4 mg Ondansetron HCl (Zofran) 4 mg IVP Q6H PRN PRN Reason: Nausea/Vomiting Pantoprazole Sodium (Protonix) 40 mg PO DAILY [facility] Last Admin: 01/07/18 09:32 Dose: 40 mg Pioglitazone HCl (Actos) 30 mg PO DAILY [facility] Last Admin: 01/07/18 09:31 Dose: 30 mg Pravastatin Sodium (Pravachol) 40 mg PO HS [facility] Last Admin: 01/06/18 21:10 Dose: 40 mg Promethazine HCl (Phenergan) 12.5 mg IM Q4H PRN PRN Reason: Nausea Promethazine HCl (Phenergan) 12.5 mg IM Q4H PRN PRN Reason: Nausea/Vomiting Senna/Docusate Sodium (Senokot S) 2 tab PO BID [facility] Last Admin: 01/07/18 09:31 Dose: 2 tab Sertraline HCl (Zoloft) 150 mg PO [facility] Last Admin: 01/06/18 21:09 Dose: 150 mg Sodium Chloride (Flush - Normal Saline) 10 ml IVF PRN PRN PRN Reason: Saline Flush Tramadol HCl (Ultram) 50 mg PO Q6H PRN PRN Reason: Mild Pain (1-3) Tramadol HCl (Ultram) 100 mg PO Q6H PRN PRN Reason: Moderate Pain 4-6 Last Admin: 01/04/18 08:46 Dose: 100 mg Zolpidem Tartrate (Ambien) 5 mg PO HSPRN PRN PRN Reason: Insomnia
[2018-01-07] MEDS ORDERED: HYDROcodone/Acetaminophen 10/325 mg Tablet PO PRN ×2 (17:08→17:09)
[2018-01-07] MEDS ORDERED: traMADol HCl 50 MG TAB PO PRN ×2 (17:09)
[2018-01-07] MEDS ORDERED: Ondansetron HCl/PF 4 MG/2 ML Vial IVP PRN ×2 (17:10→17:13)
[2018-01-07] MEDS ORDERED: Promethazine HCl 25 MG/ML VIAL IM PRN ×2 (17:10→17:13)
[2018-01-07] MEDS ORDERED: Fentanyl 100 MCG/2 ML VIAL IV PRN (17:10)
[2018-01-07] MEDS ORDERED: Zolpidem Tartrate 5 MG TAB PO PRN (17:10)
[2018-01-07] MEDS ORDERED: Acetaminophen 325 MG TAB PO PRN (17:11)
[2018-01-07] MEDS ORDERED: diphenhydrAMINE 25 MG CAP PO PRN (17:11)
[2018-01-07] MEDS ORDERED: ALPRAZolam 0.5 MG TAB PO PRN (17:14)
[2018-01-07] MEDS ORDERED: Benzonatate 100 MG CAP PO PRN (17:14)
[2018-01-07] MEDS ORDERED: Ropivacaine HCl/PF 250 ML in Premix Bag 1 BAG NERVE BLCK SCH (17:15)
[2018-01-07] MEDS ORDERED: guaiFENesin ER 600 MG TAB PO PRN (17:18)
[2018-01-07] MEDS ORDERED: Dextrose 5% in Water 1,000 ML IV PRN (17:22)
[2018-01-07] MEDS ORDERED: Dextrose 50% Abboject 50 ML SYRINGE SLOW IVP PRN (17:22)
[2018-01-07] MEDS ORDERED: HumaLOG 300 UNITS/3 ML VIAL SC PRN (17:23)
[2018-01-07] MEDS ORDERED: metFORMIN 500 MG TAB PO SCH (17:30)
[2018-01-07] MEDS: Donepezil HCl 10 MG TAB PO SCH (21:01)
[2018-01-07] MEDS: Loratadine 10 MG TAB PO SCH (21:02)
[2018-01-07] MEDS: Fenofibrate Nanocrystallized 145 MG TAB PO SCH (21:02)
[2018-01-07] MEDS: Finasteride 5 MG TAB PO SCH (21:02)
[2018-01-07] MEDS: Atorvastatin Calcium 10 MG TAB PO SCH (21:03)
[2018-01-07] MEDS: Montelukast Sodium 10 mg Tablet PO SCH (21:06)
[2018-01-08] MEDS ORDERED: Diltiazem 125 MG in Sodium Chloride 0.9% 100 ML IVPB SCH (03:00)
[2018-01-08 05:08] LABS: Mean Corpuscular HGB CONC 31.7 g/dL (32.0-36.0); Mean Corpuscular Volume 88.3 fL (78.0-98.0); Mean Platelet Volume 6.7 fL (7.4-10.4); Platelet Count 399 thou/uL (130-400); RBC Distribution Width 14.2 % (11.5-14.5); Red Blood Cell (RBC) Count 3.21 mill/uL (4.70-6.10); White Blood Cell (WBC) Count 9.9 thou/uL (4.8-10.8)
[2018-01-08 05:21] LABS: Anion Gap 13 mmol/L (10-20); BUN (Urea Nitrogen) 16 mg/dL (8.4-25.7); Calc. Creatinine Clearance 103 mL/min (70-130); Calcium 9.7 mg/dL (7.8-10.44); Carbon Dioxide 27 mmol/L (23-31); Chloride 104 mmol/L (98-107); Estimated GFR-MDRD Greater than 90; Glucose 154 mg/dL (83-110); Magnesium 1.4 mg/dL (1.6-2.6); Phosphorus 2.2 mg/dL (2.3-4.7); Potassium 3.4 mmol/L (3.5-5.1); Sodium 141 mmol/L (136-145)
[2018-01-08] MEDS: Bupropion 100 MG SR TAB PO SCH ×2 (08:58→21:51)
[2018-01-08] MEDS: Vit A,C & E/Lutein/Minerals Tablet PO SCH (08:59)
[2018-01-08] MEDS: glipiZIDE 5 MG TAB PO SCH (09:00)
[2018-01-08] MEDS: Pioglitazone HCl 15 MG TAB PO SCH (09:01)
[2018-01-08] MEDS: Furosemide 20 MG TAB PO SCH (09:01)
[2018-01-08] MEDS: Aspirin 81 mg Enteric Coated Tablet PO SCH ×2 (09:02→21:51)
[2018-01-08] MEDS: metFORMIN 500 MG TAB PO SCH ×2 (09:02→16:07)
[2018-01-08] MEDS: Ferrous Gluconate 324 MG TAB PO SCH ×2 (09:02→16:07)
[2018-01-08] MEDS: Multivitamin W/ Minerals 1 TAB PO SCH (09:03)
[2018-01-08] MEDS: Senokot S 8.6-50 MG TAB PO SCH ×2 (09:07→21:52)
[2018-01-08] MEDS ORDERED: Magnesium Sulfate 2 GM in Sodium Chloride 0.9% 100 ML IVPB SCH (10:15)
[2018-01-08] MEDS: HumaLOG 300 UNITS/3 ML VIAL SC PRN (11:44)
--- NOTE | 2018-01-08 18:29 | PDOC.CTH ---
Cardiology Progress Note - Subjective Doing well. No PE on CT angio. Earlier today he had an episode of SVT. - Objective Vital Signs Temp Pulse Resp BP BP BP Pulse Ox 01/08/18 14:20 97.4 F L 20 L 20 108/63 01/08/18 09:01 136/77 01/08/18 08:00 97.5 F L 100 24 H 100 01/08/18 07:40 97.5 F L 100 24 H 136/77 100 Admit Weight 208 lb Weight 197 lb 4.8 oz 01/07/18 01/08/18 01/09/18 06:59 06:59 06:59 Intake Total 1600 1690 Output Total 3 950 Balance 1597 740 - Physical Examination General/Neuro: alert & oriented x3, NAD Neck: no JVD present Lungs: CTA, unlabored respirations Heart: RRR Abdomen: NT/ND Extremities: + edema B (1+) - Telemetry Telemetry Rhythm: S tahc, PAC's. SVT - Labs Result Diagrams: 01/08/18 04:19 01/08/18 04:19 Troponin/CKMB CK-MB (CK-2) 2.1 ng/mL (0-6.6) 01/07/18 11:50 Troponin I Less than 0.010 ng/mL (< 0.028) 01/07/18 11:50 - Assessment/Plan 1. Sinus tachycardia. 2. SVT 3. Dilated aortic root on echo at 4.3 cm. Not dilated on CT chest. 4. Hypokalemia 5. Frequent PAC's PLAN: - Currently back in sinus tachycardia with HR's in the 100's - Continue Diltiazem drip for now and will likely switch to PO tomorrow if he remains stable. - Will stay away from BB's given his Asthma. - Will need ablation in the future once his bone is healed. - Replace Aníbal
[2018-01-08] MEDS ORDERED: Potassium Chloride 20 MEQ TAB PO SCH (19:45)
[2018-01-08] MEDS: Fenofibrate Nanocrystallized 145 MG TAB PO SCH (21:51)
[2018-01-08] MEDS: Atorvastatin Calcium 10 MG TAB PO SCH (21:52)
[2018-01-08] MEDS: Loratadine 10 MG TAB PO SCH (21:52)
[2018-01-08] MEDS: Finasteride 5 MG TAB PO SCH (21:52)
[2018-01-08] MEDS: Montelukast Sodium 10 mg Tablet PO SCH (21:53)
[2018-01-08] MEDS: Donepezil HCl 10 MG TAB PO SCH (21:53)
--- NOTE | 2018-01-08 22:48 | PDOC.PN ---
- Subjective Encounter Start Date: 01/08/18 Encounter Start Time: 13:00 seen and examined. sinus tachycardic. - Objective MAR Reviewed: Yes Vital Signs & Weight: Vital Signs (12 hours) Temp Pulse Resp BP 01/08/18 14:20 97.4 F L 20 L 20 108/63 Weight Admit Weight 208 lb Weight 197 lb 4.8 oz I&O: 01/07/18 01/08/18 01/09/18 06:59 06:59 06:59 Intake Total 1600 1690 Output Total 3 950 Balance 1597 740 Result Diagrams: 01/08/18 04:19 01/08/18 04:19 Additional Labs: Accuchecks 01/08/18 01/08/18 01/08/18 20:25 16:46 11:05 POC Glucose 214 H 154 H 243 H 01/08/18 05:35 POC Glucose 158 H Phys Exam - Physical Examination Constitutional: NAD HEENT: PERRLA, moist MMs Neck: no JVD Respiratory: no wheezing, no rales, no rhonchi Cardiovascular: no significant murmur, no rub Gastrointestinal: soft, non-tender, no distention, positive bowel sounds Musculoskeletal: pulses present Neurological: non-focal, moves all 4 limbs Psychiatric: normal affect Deviation from normal: right knee bandages. Right thigh echymosis, and some skin ecchymosis. Dx/Plan (1) Sinus tachycardia Code(s): R00.0 - TACHYCARDIA, UNSPECIFIED Status: Acute Comment: monitor on tele. continue cardizem. will follow up with cardio for further recs. (2) Postoperative anemia Code(s): D64.9 - ANEMIA, UNSPECIFIED Status: Acute Comment: will monitor (3) S/P total knee arthroplasty Code(s): Z96.659 - PRESENCE OF UNSPECIFIED ARTIFICIAL KNEE JOINT Status: Acute Qualifiers: Laterality: right Qualified Code(s): Z96.651 - Presence of right artificial knee joint (4) CAD (coronary artery disease) Code(s): I25.10 - ATHSCL HEART DISEASE OF [place] CORONARY ARTERY W/O ANG PCTRS Status: Chronic Comment: stable. (5) Diabetes Code(s): E11.9 - TYPE 2 DIABETES MELLITUS WITHOUT COMPLICATIONS Status: Chronic Qualifiers: Diabetes mellitus type: type 2 Comment: controll sugars (6) HTN (hypertension) Code(s): I10 - ESSENTIAL (PRIMARY) HYPERTENSION Status: Chronic Comment: controlled - Plan * . see the above Review of Systems - Review of Systems Constitutional: negative: fever, chills, sweats, weakness, malaise, other Eyes: negative: Pain, Vision Change, Conjunctivae Inflammation, Eyelid Inflammation, Redness, Other ENT: negative: Ear Pain, Ear Discharge, Nose Pain, Nose Discharge, Nose Congestion, Mouth Pain, Mouth Swelling, Throat Pain, Throat Swelling, Other Respiratory: negative: Cough, Dry, Shortness of Breath, Hemoptysis, SOB with Excertion, Pleuritic Pain, Sputum, Wheezing Cardiovascular: negative: chest pain, palpitations, orthopnea, paroxysmal nocturnal dyspnea, edema, light headedness, other Gastrointestinal: negative: Nausea, Vomiting, Abdominal Pain, Diarrhea, Constipation, Melena, Hematochezia, Other Genitourinary: negative: Dysuria, Frequency, Incontinence, Hematuria, Retention , Other Musculoskeletal: negative: Neck Pain, Shoulder Pain, Arm Pain, Back Pain, Hand Pain, Leg Pain, Foot Pain, Other Skin: negative: Rash, Lesions, Preet, Bruising, Other Neurological: negative: Weakness, Numbness, Incoordination, Change in Speech, Confusion, Seizures, Other - Medications/Allergies Allergies/Adverse Reactions: Allergies Allergy/AdvReac Type Severity Reaction Status Date / Time Penicillins Allergy Intermediate Verified 01/03/18 17:26 Medications: Current Medications Acetaminophen (Tylenol) 650 mg PO Q4H PRN PRN Reason: [place]/ T > 101F; Mild Pain (1-3) Hydrocodone Bitart/Acetaminophen ([place] 10/325) 1 tab PO Q4H PRN PRN Reason: Pain (1-3) Hydrocodone Bitart/Acetaminophen ([place] 10/325) 2 tab PO Q4H PRN PRN Reason: PAIN (4-6) Albuterol/Ipratropium (Duoneb) 3 ml NEB [id number] PRN PRN Reason: SOB &/or Wheezing Alprazolam (Xanax) 0.5 mg PO Q6H PRN PRN Reason: Anxiety Aspirin (Ecotrin) 81 mg PO BID [facility] Last Admin: 01/08/18 21:51 Dose: 81 mg Atorvastatin Calcium (Lipitor) 10 mg PO HS [facility] Last Admin: 01/08/18 21:52 Dose: 10 mg Benzonatate (Tessalon) 100 mg PO TID PRN PRN Reason: Cough Bupropion HCl (Wellbutrin Sr) 100 mg PO BID [facility] Last Admin: 01/08/18 21:51 Dose: 100 mg Dextrose/Water (Dextrose 50%) 25 gm SLOW IVP PRN PRN PRN Reason: Hypoglycemia Diphenhydramine HCl (Benadryl) 25 mg PO Q6H PRN PRN Reason: Itching Donepezil HCl (Aricept) 15 mg PO [facility] Last Admin: 01/08/18 21:53 Dose: 15 mg Enalapril Maleate (Vasotec) 10 mg PO DAILY [facility] Last Admin: 01/08/18 09:01 Dose: 10 mg Fenofibrate (Tricor) 145 mg PO [facility] Last Admin: 01/08/18 21:51 Dose: 145 mg Fentanyl (Sublimaze) 50 mcg IV Q1H PRN PRN Reason: .BREAKTHROUGH PAIN Ferrous Gluconate (Fergon) 324 mg PO BID-[facility] Last Admin: 01/08/18 16:07 Dose: 324 mg Finasteride (Proscar) 5 mg PO [facility] Last Admin: 01/08/18 21:52 Dose: 5 mg Furosemide (Lasix) 20 mg PO DAILY [facility] Last Admin: 01/08/18 09:01 Dose: 20 mg Glipizide (Glucotrol) 2.5 mg PO DAILY-[facility] Last Admin: 01/08/18 09:00 Dose: 2.5 mg Glucagon (Glucagon) 1 mg IM PRN PRN PRN Reason: Hypoglycemia Guaifenesin (Mucinex) 600 mg PO DAILY PRN PRN Reason: Cough Last Admin: 01/08/18 11:44 Dose: 600 mg Ropivacaine 250 ml/ Device 250 mls @ 10 mls/hr [facility] Dextrose/Water (D5w) 1,000 mls @ 0 mls/hr IV .Q0M PRN PRN Reason: Hypoglycemia Sodium Chloride (Normal Saline 0.9%) 1,000 mls @ 50 mls/hr IV .Q20H [facility] Last Admin: 01/07/18 18:13 Dose: Not Given Diltiazem HCl 125 mg/ Sodium (Chloride) 125 mls @ 5 mls/hr IVPB INF [facility]; Protocol Last Admin: 01/08/18 03:38 Dose: 125 mls Insulin Human Lispro (Humalog) 0 units SC .MODERATE SLIDING SC PRN PRN Reason: Moderate Correctional Scale Last Admin: 01/08/18 11:44 Dose: 4 unit Iron/Minerals/Multivitamins (Theragran M) 1 tab PO DAILY [facility] Last Admin: 01/08/18 09:03 Dose: 1 tab Loratadine (Claritin) 10 mg PO HS [facility] Last Admin: 01/08/18 21:52 Dose: 10 mg Metformin HCl (Glucophage) 500 mg PO BID-[facility] Last Admin: 01/08/18 16:07 Dose: 500 mg Montelukast Sodium (Singulair) 10 mg PO QPM [facility] Last Admin: 01/08/18 21:53 Dose: 10 mg Multivitamins/Minerals (Ocuvite With Lutein) 1 tab PO DAILY [facility] Last Admin: 01/08/18 08:59 Dose: 1 tab Ondansetron HCl (Zofran) 4 mg IVP Q6H PRN PRN Reason: Nausea/Vomiting Pantoprazole Sodium (Protonix) 40 mg PO DAILY [facility] Last Admin: 01/08/18 09:03 Dose: 40 mg Pioglitazone HCl (Actos) 30 mg PO DAILY [facility] Last Admin: 01/08/18 09:01 Dose: 30 mg Pot[facility] ([facility]) [facility] Promethazine HCl (Phenergan) 12.5 mg IM Q4H PRN PRN Reason: Nausea/Vomiting Senna/Docusate Sodium (Senokot S) 2 tab PO BID [facility] Last Admin: 01/08/18 21:52 Dose: 2 tab Sertraline HCl (Zoloft) 150 mg PO [facility] Last Admin: 01/08/18 21:51 Dose: 150 mg Sodium Chloride (Flush - Normal Saline) 10 ml IVF PRN PRN PRN Reason: Saline Flush Tramadol HCl (Ultram) 50 mg PO Q6H PRN PRN Reason: Mild Pain (1-3) Tramadol HCl (Ultram) 100 mg PO Q6H PRN PRN Reason: Moderate Pain 4-6 Zolpidem Tartrate (Ambien) 5 mg PO HSPRN PRN PRN Reason: Insomnia
[2018-01-08] MEDS: Sodium Chloride 0.9% 1,000 ML IV SCH (23:53)
[2018-01-09] MEDS: Sodium Chloride 0.9% 1,000 ML IV SCH (04:52)
[2018-01-09 05:08] LABS: #Basophils 0.1 thou/uL (0.0-0.2); #Eosinphils 0.2 thou/uL (0.0-0.7); #Lymphocytes 2.4 thou/uL (1.20-3.40); #Monocytes 1.3 thou/uL (0.11-0.59); %Basophils 0.6 % (0.0-1.0); %Eosinophils 2.2 % (0.0-10.0); %Lymphocytes 21.6 % (21.0-51.0); %Monocytes 11.6 % (0.0-10.0); %Neutrophils 64.1 % (42.0-75.0); Hemoglobin 9.2 g/dL (14.0-18.0); Mean Corpuscular HGB CONC 32.3 g/dL (32.0-36.0); Mean Corpuscular Hemoglobin 28.4 pg (27.0-31.0); Mean Corpuscular Volume 87.9 fL (78.0-98.0); Mean Platelet Volume 6.4 fL (7.4-10.4); Platelet Count 461 thou/uL (130-400); RBC Distribution Width 14.1 % (11.5-14.5); Red Blood Cell (RBC) Count 3.25 mill/uL (4.70-6.10)
[2018-01-09 05:24] LABS: Anion Gap 11 mmol/L (10-20); BUN (Urea Nitrogen) 10 mg/dL (8.4-25.7); Calc. Creatinine Clearance 108 mL/min (70-130); Calcium 9.3 mg/dL (7.8-10.44); Carbon Dioxide 28 mmol/L (23-31); Chloride 103 mmol/L (98-107); Estimated GFR-MDRD Greater than 90; Glucose 163 mg/dL (83-110); Potassium 3.4 mmol/L (3.5-5.1); Sodium 139 mmol/L (136-145)
[2018-01-09] MEDS: glipiZIDE 5 MG TAB PO SCH (08:55)
[2018-01-09] MEDS: Aspirin 81 mg Enteric Coated Tablet PO SCH ×2 (08:56→21:03)
[2018-01-09] MEDS: metFORMIN 500 MG TAB PO SCH ×2 (08:56→17:02)
[2018-01-09] MEDS: Furosemide 20 MG TAB PO SCH (08:56)
[2018-01-09] MEDS: Potassium Chloride 20 MEQ TAB PO SCH (08:56)
[2018-01-09] MEDS: Bupropion 100 MG SR TAB PO SCH ×2 (08:56→21:04)
[2018-01-09] MEDS: Ferrous Gluconate 324 MG TAB PO SCH ×2 (08:56→17:02)
[2018-01-09] MEDS: Pioglitazone HCl 15 MG TAB PO SCH (08:57)
[2018-01-09] MEDS: Senokot S 8.6-50 MG TAB PO SCH ×2 (08:57→21:03)
[2018-01-09] MEDS: Vit A,C & E/Lutein/Minerals Tablet PO SCH (08:57)
[2018-01-09] MEDS: Multivitamin W/ Minerals 1 TAB PO SCH (08:57)
[2018-01-09] MEDS ORDERED: Potassium Chloride 20 MEQ TAB PO SCH (10:15)
[2018-01-09] MEDS ORDERED: Magnesium 2 GM/NS 0.9% 100 ML 2 GM in Premix Bag 1 BAG IVPB SCH (12:00)
[2018-01-09] MEDS: HumaLOG 300 UNITS/3 ML VIAL SC PRN (12:10)
[2018-01-09] MEDS ORDERED: Magnesium Sulfate 2 GM in Sodium Chloride 0.9% 100 ML IVPB SCH (14:30)
--- NOTE | 2018-01-09 19:49 | PDOC.CTH ---
Cardiology Progress Note - Subjective No new issues. - Objective Vital Signs Temp Pulse Resp BP BP Pulse Ox 01/09/18 17:01 97.3 F L 101 H 18 138/67 95 01/09/18 11:20 97.4 F L 93 18 130/65 92 L 01/09/18 07:58 97.4 F L 93 18 140/70 92 L Admit Weight 208 lb Weight 194 lb 01/08/18 01/09/18 01/10/18 06:59 06:59 06:59 Intake Total 1690 1180 720 Output Total 950 800 800 Balance 740 380 -80 - Physical Examination General/Neuro: alert & oriented x3, NAD Neck: no JVD present Lungs: unlabored respirations Heart: RRR Abdomen: NT/ND Extremities: + edema B (1+) - Telemetry Telemetry Rhythm: NSR - Labs Result Diagrams: 01/09/18 04:20 01/09/18 04:20 Troponin/CKMB CK-MB (CK-2) 2.1 ng/mL (0-6.6) 01/07/18 11:50 Troponin I Less than 0.010 ng/mL (< 0.028) 01/07/18 11:50 - Assessment/Plan 1. Sinus tachycardia. 2. SVT 3. Dilated aortic root on echo at 4.3 cm. Not dilated on CT chest. 4. Hypokalemia 5. Frequent PAC's PLAN: - Still in sinus tachycardia with HR's in the 100's - Continue Diltiazem will switch to PO today. - Will stay away from BB's given his Asthma. - Will need ablation in the future once his bone is healed. - Andreina Spangler
--- NOTE | 2018-01-09 20:46 | PDOC.PN ---
- Subjective Encounter Start Date: 01/09/18 Encounter Start Time: 16:40 Subjective: tele shows sinus tach @ 105 Patient seen and examined. NAD. sitting at the edge of bed. Wants to know when he can go home. - Objective MAR Reviewed: Yes Vital Signs & Weight: Vital Signs (12 hours) Temp Pulse Resp BP Pulse Ox 01/09/18 17:01 97.3 F L 101 H 18 138/67 95 01/09/18 11:20 97.4 F L 93 18 130/65 92 L Weight Admit Weight 208 lb Weight 194 lb I&O: 01/08/18 01/09/18 01/10/18 06:59 06:59 06:59 Intake Total 1690 1180 720 Output Total 950 800 800 Balance 740 380 -80 Result Diagrams: 01/09/18 04:20 01/09/18 04:20 Additional Labs: Accuchecks 01/09/18 01/09/18 01/09/18 16:41 11:46 05:47 POC Glucose 124 H 206 H 173 H 01/08/18 20:25 POC Glucose 214 H Phys Exam - Physical Examination Constitutional: NAD HEENT: PERRLA, moist MMs Neck: no JVD Respiratory: no wheezing, no rales, no rhonchi, clear to auscultation bilateral Cardiovascular: no significant murmur tachycardic Gastrointestinal: soft, non-tender, no distention, positive bowel sounds Musculoskeletal: no edema, pulses present echymosis noted at the right thigh. Knee bandage noted. Some erythema noted Neurological: non-focal, normal sensation, moves all 4 limbs Psychiatric: normal affect, A&O x 3 Skin: no rash Deviation from normal: warm right knee, with erythema and ecchymosis @ thigh. Dx/Plan (1) Sinus tachycardia Code(s): R00.0 - TACHYCARDIA, UNSPECIFIED Status: Acute Comment: monitor on tele. will start po cardizem today. will continue to follow cardiology's recs. (2) Postoperative anemia Code(s): D64.9 - ANEMIA, UNSPECIFIED Status: Acute Comment: will monitor (3) S/P total knee arthroplasty Code(s): Z96.659 - PRESENCE OF UNSPECIFIED ARTIFICIAL KNEE JOINT Status: Acute Qualifiers: Laterality: right Qualified Code(s): Z96.651 - Presence of right artificial knee joint Comment: right knee is erythematous however no signs of infection at this time. will continue to monitor (4) CAD (coronary artery disease) Code(s): I25.10 - ATHSCL HEART DISEASE OF [place] CORONARY ARTERY W/O ANG PCTRS Status: Chronic Comment: stable. (5) Diabetes Code(s): E11.9 - TYPE 2 DIABETES MELLITUS WITHOUT COMPLICATIONS Status: Chronic Qualifiers: Diabetes mellitus type: type 2 Comment: controll sugars (6) HTN (hypertension) Code(s): I10 - ESSENTIAL (PRIMARY) HYPERTENSION Status: Chronic Comment: controlled - Plan * . Review of Systems - Review of Systems Constitutional: negative: fever, chills, sweats, weakness, malaise, other Eyes: negative: Pain, Vision Change, Conjunctivae Inflammation, Eyelid Inflammation, Redness, Other ENT: negative: Ear Pain, Ear Discharge, Nose Pain, Nose Discharge, Nose Congestion, Mouth Pain, Mouth Swelling, Throat Pain, Throat Swelling, Other Respiratory: negative: Cough, Dry, Shortness of Breath, Hemoptysis, SOB with Excertion, Pleuritic Pain, Sputum, Wheezing Cardiovascular: negative: chest pain, palpitations, orthopnea, paroxysmal nocturnal dyspnea, edema, light headedness, other Gastrointestinal: negative: Nausea, Vomiting, Abdominal Pain, Diarrhea, Constipation, Melena, Hematochezia, Other Genitourinary: negative: Dysuria, Frequency, Incontinence, Hematuria, Retention , Other Musculoskeletal: negative: Neck Pain, Shoulder Pain, Arm Pain, Back Pain, Hand Pain, Leg Pain, Foot Pain, Other Skin: negative: Rash, Lesions, Preet, Bruising, Other Neurological: negative: Weakness, Numbness, Incoordination, Change in Speech, Confusion, Seizures, Other - Medications/Allergies Allergies/Adverse Reactions: Allergies Allergy/AdvReac Type Severity Reaction Status Date / Time Penicillins Allergy Intermediate Verified 01/03/18 17:26 Medications: Current Medications Acetaminophen (Tylenol) 650 mg PO Q4H PRN PRN Reason: [place]/ T > 101F; Mild Pain (1-3) Hydrocodone Bitart/Acetaminophen ([employer] 10/325) 1 tab PO Q4H PRN PRN Reason: Pain (1-3) Last Admin: 01/08/18 23:53 Dose: 1 tab Hydrocodone Bitart/Acetaminophen ([employer] 10/325) 2 tab PO Q4H PRN PRN Reason: PAIN (4-6) Albuterol/Ipratropium (Duoneb) 3 ml NEB [id number] PRN PRN Reason: SOB &/or Wheezing Alprazolam (Xanax) 0.5 mg PO Q6H PRN PRN Reason: Anxiety Aspirin (Ecotrin) 81 mg PO BID [facility] Last Admin: 01/09/18 08:56 Dose: 81 mg Atorvastatin Calcium (Lipitor) 10 mg PO [facility] Last Admin: 01/08/18 21:52 Dose: 10 mg Benzonatate (Tessalon) 100 mg PO TID PRN PRN Reason: Cough Bupropion HCl (Wellbutrin Sr) 100 mg PO BID [facility] Last Admin: 01/09/18 08:56 Dose: 100 mg Dextrose/Water (Dextrose 50%) 25 gm SLOW IVP PRN PRN PRN Reason: Hypoglycemia Diltiazem HCl (Cardizem Sr) 60 mg PO BID [facility] Diphenhydramine HCl (Benadryl) 25 mg PO Q6H PRN PRN Reason: Itching Donepezil HCl (Aricept) 15 mg PO [facility] Last Admin: 01/08/18 21:53 Dose: 15 mg Enalapril Maleate (Vasotec) 10 mg PO DAILY [facility] Last Admin: 01/09/18 08:56 Dose: 10 mg Fenofibrate (Tricor) 145 mg PO [facility] Last Admin: 01/08/18 21:51 Dose: 145 mg Fentanyl (Sublimaze) 50 mcg IV Q1H PRN PRN Reason: .BREAKTHROUGH PAIN Ferrous Gluconate (Fergon) 324 mg PO BID-[facility] Last Admin: 01/09/18 17:02 Dose: 324 mg Finasteride (Proscar) 5 mg PO [facility] Last Admin: 01/08/18 21:52 Dose: 5 mg Furosemide (Lasix) 20 mg PO DAILY [facility] Last Admin: 01/09/18 08:56 Dose: 20 mg Glipizide (Glucotrol) 2.5 mg PO DAILY-[facility] Last Admin: 01/09/18 08:55 Dose: 2.5 mg Glucagon (Glucagon) 1 mg IM PRN PRN PRN Reason: Hypoglycemia Guaifenesin (Mucinex) 600 mg PO DAILY PRN PRN Reason: Cough Last Admin: 01/08/18 11:44 Dose: 600 mg Ropivacaine 250 ml/ Device 250 mls @ 10 mls/hr [facility]ERV[facility] BLCK INF [facility] Dextrose/Water (D5w) 1,000 mls @ 0 mls/hr IV .Q0M PRN PRN Reason: Hypoglycemia Sodium Chloride (Normal Saline 0.9%) 1,000 mls @ 50 mls/hr IV .Q20H [facility] Last Admin: 01/09/18 04:52 Dose: 1,000 mls Insulin Human Lispro (Humalog) 0 units SC .MODERATE SLIDING SC PRN PRN Reason: Moderate Correctional Scale Last Admin: 01/09/18 12:10 Dose: 4 unit Iron/Minerals/Multivitamins (Theragran M) 1 tab PO DAILY [facility] Last Admin: 01/09/18 08:57 Dose: 1 tab Loratadine (Claritin) 10 mg PO [facility] Last Admin: 01/08/18 21:52 Dose: 10 mg Metformin HCl (Glucophage) 500 mg PO BID[facility] Last Admin: 01/09/18 17:02 Dose: 500 mg Montelukast Sodium (Singulair) 10 mg PO QPM [facility] Last Admin: 01/08/18 21:53 Dose: 10 mg Multivitamins/Minerals (Ocuvite With Lutein) 1 tab PO DAILY [facility] Last Admin: 01/09/18 08:57 Dose: 1 tab Ondansetron HCl (Zofran) 4 mg IVP Q6H PRN PRN Reason: Nausea/Vomiting Pantoprazole Sodium (Protonix) 40 mg PO DAILY [facility] Last Admin: 01/09/18 08:57 Dose: 40 mg Pioglitazone HCl (Actos) 30 mg PO DAILY [facility] Last Admin: 01/09/18 08:57 Dose: 30 mg Potassium Chloride (K-Dur) 20 meq PO QAM-[facility] Last Admin: 01/09/18 08:56 Dose: 20 meq Promethazine HCl (Phenergan) 12.5 mg IM Q4H PRN PRN Reason: Nausea/Vomiting Senna/Docusate Sodium (Senokot S) 2 tab PO BID [facility] Last Admin: 01/09/18 08:57 Dose: Not Given Sertraline HCl (Zoloft) 150 mg PO [facility] Last Admin: 01/08/18 21:51 Dose: 150 mg Sodium Chloride (Flush - Normal Saline) 10 ml IVF PRN PRN PRN Reason: Saline Flush Tramadol HCl (Ultram) 50 mg PO Q6H PRN PRN Reason: Mild Pain (1-3) Tramadol HCl (Ultram) 100 mg PO Q6H PRN PRN Reason: Moderate Pain 4-6 Zolpidem Tartrate (Ambien) 5 mg PO HSPRN PRN PRN Reason: Insomnia
[2018-01-09] MEDS: Donepezil HCl 10 MG TAB PO SCH (21:01)
[2018-01-09] MEDS: Fenofibrate Nanocrystallized 145 MG TAB PO SCH (21:02)
[2018-01-09] MEDS: Montelukast Sodium 10 mg Tablet PO SCH (21:02)
[2018-01-09] MEDS: Atorvastatin Calcium 10 MG TAB PO SCH (21:03)
[2018-01-09] MEDS: Finasteride 5 MG TAB PO SCH (21:04)
[2018-01-09] MEDS: Loratadine 10 MG TAB PO SCH (21:05)
[2018-01-09] MEDS: Diltiazem HCl SR 60 mg Capsule PO SCH (21:05)
[2018-01-10] MEDS: Sodium Chloride 0.9% 1,000 ML IV SCH (02:42)
[2018-01-10 05:13] LABS: Hemoglobin 9.5 g/dL (14.0-18.0); Mean Corpuscular HGB CONC 31.3 g/dL (32.0-36.0); Mean Corpuscular Hemoglobin 27.8 pg (27.0-31.0); Mean Platelet Volume 6.7 fL (7.4-10.4); Platelet Count 489 thou/uL (130-400); RBC Distribution Width 14.7 % (11.5-14.5); Red Blood Cell (RBC) Count 3.42 mill/uL (4.70-6.10); White Blood Cell (WBC) Count 12.5 thou/uL (4.8-10.8)
[2018-01-10] MEDS: glipiZIDE 5 MG TAB PO SCH (08:59)
[2018-01-10] MEDS: metFORMIN 500 MG TAB PO SCH ×2 (08:59→16:29)
[2018-01-10] MEDS: Ferrous Gluconate 324 MG TAB PO SCH ×2 (08:59→16:29)
[2018-01-10] MEDS: Potassium Chloride 20 MEQ TAB PO SCH (08:59)
[2018-01-10] MEDS: Furosemide 20 MG TAB PO SCH (09:00)
[2018-01-10] MEDS: Diltiazem HCl SR 60 mg Capsule PO SCH ×2 (09:00→20:44)
[2018-01-10] MEDS: Bupropion 100 MG SR TAB PO SCH ×2 (09:00→20:41)
[2018-01-10] MEDS: Aspirin 81 mg Enteric Coated Tablet PO SCH ×2 (09:00→20:42)
[2018-01-10] MEDS: Multivitamin W/ Minerals 1 TAB PO SCH (09:00)
[2018-01-10] MEDS: Pioglitazone HCl 15 MG TAB PO SCH (09:01)
[2018-01-10] MEDS: Senokot S 8.6-50 MG TAB PO SCH ×2 (09:01→20:45)
[2018-01-10] MEDS: Vit A,C & E/Lutein/Minerals Tablet PO SCH (09:01)
[2018-01-10] MEDS: HumaLOG 300 UNITS/3 ML VIAL SC PRN (12:01)
--- NOTE | 2018-01-10 16:35 | PDOC.CTH ---
Cardiology Progress Note - Subjective No new issues. No new complaints. - Objective Vital Signs Temp Pulse Pulse Pulse Resp BP BP 01/10/18 12:07 108 H 106 H 141/70 H 01/10/18 11:26 97.5 F L 97 20 01/10/18 09:00 131/78 01/10/18 07:31 98.1 F 104 H 18 01/10/18 07:30 97.5 F L 97 20 BP BP Pulse Ox Pulse Ox Pulse Ox 01/10/18 12:07 138/69 95 92 L 01/10/18 11:26 127/70 94 L 01/10/18 09:00 01/10/18 07:31 131/78 94 L 01/10/18 07:30 94 L Admit Weight 208 lb Weight 198 lb 14.4 oz 01/09/18 01/10/18 01/11/18 06:59 06:59 06:59 Intake Total 1180 2880 Output Total 800 2800 Balance 380 80 - Physical Examination General/Neuro: alert & oriented x3, NAD Neck: no JVD present Lungs: CTA, unlabored respirations Heart: RRR Abdomen: NT/ND Extremities: + edema B (1+) - Telemetry Telemetry Rhythm: NSR - Labs Result Diagrams: 01/10/18 04:22 01/09/18 04:20 Troponin/CKMB CK-MB (CK-2) 2.1 ng/mL (0-6.6) 01/07/18 11:50 Troponin I Less than 0.010 ng/mL (< 0.028) 01/07/18 11:50 - Assessment/Plan 1. Sinus tachycardia. 2. SVT 3. Dilated aortic root on echo at 4.3 cm. Not dilated on CT chest. 4. Hypokalemia 5. Frequent PAC's PLAN: - Still in sinus rhytym with brief episodes of sinus tach. - Continue Diltiazem PO. Tolerating this well. - Will stay away from BB's given his Asthma. - Will need ablation in the future once his bone is healed. - Replace K. - May discharge home any time from cardiac perspective. - Follow up in the office in 1 month.
--- NOTE | 2018-01-10 17:04 | PDOC.PN ---
- Subjective Encounter Start Date: 01/10/18 Encounter Start Time: 17:02 Patient seen and examined by me. Not in acute distress. Patient is sitting in chair. Wanting to go home. - Objective MAR Reviewed: Yes Vital Signs & Weight: Vital Signs (12 hours) Temp Pulse Pulse Pulse Resp BP BP 01/10/18 16:34 97.6 F 99 18 01/10/18 12:07 108 H 106 H 141/70 H 01/10/18 11:26 97.5 F L 97 20 01/10/18 09:00 131/78 01/10/18 07:31 98.1 F 104 H 18 01/10/18 07:30 97.5 F L 97 20 BP BP Pulse Ox Pulse Ox Pulse Ox 01/10/18 16:34 141/65 H 94 L 01/10/18 12:07 138/69 95 92 L 01/10/18 11:26 127/70 94 L 01/10/18 09:00 01/10/18 07:31 131/78 94 L 01/10/18 07:30 94 L Weight Admit Weight 208 lb Weight 198 lb 14.4 oz I&O: 01/09/18 01/10/18 01/11/18 06:59 06:59 06:59 Intake Total 1180 2880 Output Total 800 2800 Balance 380 80 Result Diagrams: 01/10/18 04:22 01/09/18 04:20 Additional Labs: Accuchecks 01/10/18 01/10/18 01/10/18 16:43 10:49 06:00 POC Glucose 108 233 H 180 H 01/09/18 01/09/18 20:46 16:41 POC Glucose 215 H 124 H Phys Exam - Physical Examination Constitutional: NAD HEENT: PERRLA, moist MMs Neck: no nodes, no JVD Respiratory: no wheezing, no rales, no rhonchi, clear to auscultation bilateral Cardiovascular: RRR, no significant murmur, no rub Gastrointestinal: soft, non-tender, no distention Musculoskeletal: no edema, pulses present Neurological: non-focal, normal sensation, moves all 4 limbs Psychiatric: normal affect, A&O x 3 Skin: no rash Dx/Plan (1) Sinus tachycardia Code(s): R00.0 - TACHYCARDIA, UNSPECIFIED Status: Acute Comment: monitor on tele. will continue cardizem po. will continue to follow cardiology's recs. (2) Postoperative anemia Code(s): D64.9 - ANEMIA, UNSPECIFIED Status: Acute Comment: will monitor (3) S/P total knee arthroplasty Code(s): Z96.659 - PRESENCE OF UNSPECIFIED ARTIFICIAL KNEE JOINT Status: Acute Qualifiers: Laterality: right Qualified Code(s): Z96.651 - Presence of right artificial knee joint Comment: right knee is erythematous however no signs of infection at this time. will continue to monitor (4) CAD (coronary artery disease) Code(s): I25.10 - ATHSCL HEART DISEASE OF [place] CORONARY ARTERY W/O ANG PCTRS Status: Chronic Comment: stable. (5) Diabetes Code(s): E11.9 - TYPE 2 DIABETES MELLITUS WITHOUT COMPLICATIONS Status: Chronic Qualifiers: Diabetes mellitus type: type 2 Comment: controll sugars (6) HTN (hypertension) Code(s): I10 - ESSENTIAL (PRIMARY) HYPERTENSION Status: Chronic Comment: controlled - Plan * . Review of Systems - Review of Systems Constitutional: negative: fever, chills, sweats, weakness, malaise, other Eyes: negative: Pain, Vision Change, Conjunctivae Inflammation, Eyelid Inflammation, Redness, Other ENT: negative: Ear Pain, Ear Discharge, Nose Pain, Nose Discharge, Nose Congestion, Mouth Pain, Mouth Swelling, Throat Pain, Throat Swelling, Other Respiratory: negative: Cough, Dry, Shortness of Breath, Hemoptysis, SOB with Excertion, Pleuritic Pain, Sputum, Wheezing Cardiovascular: negative: chest pain, palpitations, orthopnea, paroxysmal nocturnal dyspnea, edema, light headedness, other Gastrointestinal: negative: Nausea, Vomiting, Abdominal Pain, Diarrhea, Constipation, Melena, Hematochezia, Other Genitourinary: negative: Dysuria, Frequency, Incontinence, Hematuria, Retention , Other Musculoskeletal: negative: Neck Pain, Shoulder Pain, Arm Pain, Back Pain, Hand Pain, Leg Pain, Foot Pain, Other Skin: negative: Rash, Lesions, Preet, Bruising, Other Neurological: negative: Weakness, Numbness, Incoordination, Change in Speech, Confusion, Seizures, Other - Medications/Allergies Allergies/Adverse Reactions: Allergies Allergy/AdvReac Type Severity Reaction Status Date / Time Penicillins Allergy Intermediate Verified 01/03/18 17:26 Medications: Current Medications Acetaminophen (Tylenol) 650 mg PO Q4H PRN PRN Reason: G[place]/ T > 101F; Mild Pain (1-3) Hydrocodone Bitart/Acetaminophen (Ariton 10/325) 1 tab PO Q4H PRN PRN Reason: Pain (1-3) Last Admin: 01/08/18 23:53 Dose: 1 tab Hydrocodone Bitart/Acetaminophen (Ariton 10/325) 2 tab PO Q4H PRN PRN Reason: PAIN (4-6) Albuterol/Ipratropium (Duoneb) 3 ml NEB [id number] PRN PRN Reason: SOB &/or Wheezing Alprazolam (Xanax) 0.5 mg PO Q6H PRN PRN Reason: Anxiety Aspirin (Ecotrin) 81 mg PO BID [facility] Last Admin: 01/10/18 09:00 Dose: 81 mg Atorvastatin Calcium (Lipitor) 10 mg PO [facility] Last Admin: 01/09/18 21:03 Dose: 10 mg Benzonatate (Tessalon) 100 mg PO TID PRN PRN Reason: Cough Bupropion HCl (Wellbutrin Sr) 100 mg PO BID [facility] Last Admin: 01/10/18 09:00 Dose: 100 mg Dextrose/Water (Dextrose 50%) 25 gm SLOW IVP PRN PRN PRN Reason: Hypoglycemia Diltiazem HCl (Cardizem Sr) 60 mg PO BID [facility] Last Admin: 01/10/18 09:00 Dose: 60 mg Diphenhydramine HCl (Benadryl) 25 mg PO Q6H PRN PRN Reason: Itching Donepezil HCl (Aricept) 15 mg PO [facility] Last Admin: 01/09/18 21:01 Dose: 15 mg Enalapril Maleate (Vasotec) 10 mg PO DAILY [facility] Last Admin: 01/10/18 09:00 Dose: 10 mg Fenofibrate (Tricor) 145 mg PO [facility] Last Admin: 01/09/18 21:02 Dose: 145 mg Fentanyl (Sublimaze) 50 mcg IV Q1H PRN PRN Reason: .BREAKTHROUGH PAIN Ferrous Gluconate (Fergon) 324 mg PO BID[facility] Last Admin: 01/10/18 16:29 Dose: 324 mg Finasteride (Proscar) 5 mg PO [facility] Last Admin: 01/09/18 21:04 Dose: 5 mg Furosemide (Lasix) 20 mg PO DAILY [facility] Last Admin: 01/10/18 09:00 Dose: 20 mg Glipizide (Glucotrol) 2.5 mg PO DAILY-AC [facility] Last Admin: 01/10/18 08:59 Dose: 2.5 mg Glucagon (Glucagon) 1 mg IM PRN PRN PRN Reason: Hypoglycemia Guaifenesin (Mucinex) 600 mg PO DAILY PRN PRN Reason: Cough Last Admin: 01/08/18 11:44 Dose: 600 mg Ropivacaine 250 ml/ Device 250 mls @ 10 mls/hr NERVE BLCK INF [facility] Dextrose/Water (D5w) 1,000 mls @ 0 mls/hr IV .Q0M PRN PRN Reason: Hypoglycemia Sodium Chloride (Normal Saline 0.9%) 1,000 mls @ 50 mls/hr IV .Q20H [facility] Last Admin: 01/10/18 02:42 Dose: 1,000 mls Insulin Human Lispro (Humalog) 0 units SC .MODERATE SLIDING SC PRN PRN Reason: Moderate Correctional Scale Last Admin: 01/10/18 12:01 Dose: 4 unit Iron/Minerals/Multivitamins (Theragran M) 1 tab PO DAILY [facility] Last Admin: 01/10/18 09:00 Dose: 1 tab Loratadine (Claritin) 10 mg PO [facility] Last Admin: 01/09/18 21:05 Dose: 10 mg [facility] Last Admin: 01/10/18 16:29 Dose: 500 mg Montelukast Sodium (Singulair) 10 mg PO QPM [facility] Last Admin: 01/09/18 21:02 Dose: 10 mg Multivitamins/Minerals (Ocuvite With Lutein) 1 tab PO DAILY [facility] Last Admin: 01/10/18 09:01 Dose: 1 tab Ondansetron HCl (Zofran) 4 mg IVP Q6H PRN PRN Reason: Nausea/Vomiting Pantoprazole Sodium (Protonix) 40 mg PO DAILY [facility] Last Admin: 01/10/18 09:00 Dose: 40 mg Pioglitazone HCl (Actos) 30 mg PO DAILY [facility] Last Admin: 01/10/18 09:01 Dose: 30 mg Potassium Chloride (K-Dur) 20 meq PO QAM[facility] Last Admin: 01/10/18 08:59 Dose: 20 meq Promethazine HCl (Phenergan) 12.5 mg IM Q4H PRN PRN Reason: Nausea/Vomiting Senna/Docusate Sodium (Senokot S) 2 tab PO BID [facility] Last Admin: 01/10/18 09:01 Dose: 2 tab Sertraline HCl (Zoloft) 150 mg PO HS [facility] Last Admin: 01/09/18 21:01 Dose: 150 mg Sodium Chloride (Flush - Normal Saline) 10 ml IVF PRN PRN PRN Reason: Saline Flush Tramadol HCl (Ultram) 50 mg PO Q6H PRN PRN Reason: Mild Pain (1-3) Tramadol HCl (Ultram) 100 mg PO Q6H PRN PRN Reason: Moderate Pain 4-6 Zolpidem Tartrate (Ambien) 5 mg PO HSPRN PRN PRN Reason: Insomnia
[2018-01-10] MEDS: Donepezil HCl 10 MG TAB PO SCH (20:40)
[2018-01-10] MEDS: Loratadine 10 MG TAB PO SCH (20:41)
[2018-01-10] MEDS: Finasteride 5 MG TAB PO SCH (20:42)
[2018-01-10] MEDS: Fenofibrate Nanocrystallized 145 MG TAB PO SCH (20:42)
[2018-01-10] MEDS: Montelukast Sodium 10 mg Tablet PO SCH (20:44)
[2018-01-10] MEDS: Atorvastatin Calcium 10 MG TAB PO SCH (20:44)
[2018-01-10 23:37] VITALS: BP 142/66; TEMP 98.4
--- NOTE | 2018-01-11 13:33 | DIS ---
DATE OF ADMISSION: 01/03/2018 DATE OF DISCHARGE: 01/10/2018 Dictating on behalf of Dr. Rod Reed. ATTENDING PHYSICIAN: Dr. Rod Reed REASON FOR ADMISSION: Right total knee replacement. 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 POSTOPERATIVE DIAGNOSES: Right proximal tibia fracture nonunion with advanced right knee osteoarthri tis OPERATIONS PERFORMED: 1. Right tibia intramedullary nail removal. 2. Right total knee arthroplasty. 3. Bone graft to right tibia nonunion fracture. CONSULTANTS: [facility], [facility] and Dr. Kelley, coding director. BRIEF HOSPITAL COURSE: This is a 72-year-old male who has advanced right knee arthritis as well as p roximal tibia fracture. He was treated extensively with casting as well as IM nail for his fracture. That resulted in a nonunion. He was indicated for tibial nail removal and conversion to a long tae m tibia arthroplasty to treat his arthritis as well as his fracture. We also indicated him for bone grafting of the tibia. Patient proceeded with the surgical procedure. He tolerated it well. Postop eratively, the patient went into a course of supraventricular tachycardia. He was managed medically by the [facility]. Dr. Kelley was consulted for SVT. Patient underwent echocardiogram as well as CT of the chest. His SVT was managed by [facility]. Patient was then discharged home in st able condition. Patient also worked with Physical Therapy, received postoperative antibiotics and po stoperative analgesics during his postoperative course. DISCHARGE DISPOSITION: Home. DISCHARGE CONDITION: Stable. DISCHARGE MEDICATIONS: See MAR. DISCHARGE INSTRUCTIONS: The patient will follow up with Dr. Kelley in 1 month. He will follow up [facility] Dr. Reed's office in 2 weeks.
== END 2018-01-10 21:33 | disposition home or self-care (01) | DRG 470 ==
LOC: SDC 10:01 → SJJU 15:20 → SDC 15:20 → SJJU 01-06 16:00 → SDC 01-07 08:51 → SJJU 01-07 11:55 → SDC 01-07 11:55 → 2NO 01-07 11:57 → SDC 01-07 11:57 → 2NO 01-07 11:57 → SDC 01-07 11:58 → 2NO 01-07 11:58
PROVIDERS: ADMIT Orthopaedic Surgery; ATTEND Orthopaedic Surgery
PROC: 0QPH04Z Removal of Internal Fixation Device from Left Tibia, Open Approach (ICD-10-PCS; principal; 2018-01-03)
PROC: 0SRD0J9 Replacement of Left Knee Joint with Synthetic Substitute, Cemented, Open Approach (ICD-10-PCS; 2018-01-03)
DX: M17.11 Unilateral primary osteoarthritis, right knee (principal); S82.101K Unspecified fracture of upper end of right tibia, subsequent encounter for closed fracture with nonunion; I25.10 Atherosclerotic heart disease of native coronary artery without angina pectoris; E78.5 Hyperlipidemia, unspecified; I10 Essential (primary) hypertension; E11.9 Type 2 diabetes mellitus without complications; J45.909 Unspecified asthma, uncomplicated; Z88.0 Allergy status to penicillin; Z79.83 Long term (current) use of bisphosphonates; Z79.84 Long term (current) use of oral hypoglycemic drugs; Z79.899 Other long term (current) drug therapy; Z98.890 Other specified postprocedural states; D64.9 Anemia, unspecified
CPT/HCPCS: 36415; 36416; 71045; 71275; 80048; 81003; 81015; 82274; 82553; 83735; 83880; 84100; 84443; 84484; 85027; 85379; 87040; 93005; 93010; 93306; 94640; C1713; C1776; G8978-GP-CK; G8978-GP-CL; G8979-GP-CI; G8979-GP-CJ; J0670; J1885; J2250; J2405; J2704; J2795; J3010; J3475; J3490; J7050; J7620

== ENCOUNTER 2018-07-13 07:41 | Day surgery (SDC) | payer MEDICARE, BC ==
[2018-07-12 09:36] VITALS: BMI 31.6
[2018-07-13 09:27] LABS: #Basophils 0.1 thou/uL (0.0-0.2); #Eosinphils 0.1 thou/uL (0.0-0.7); #Monocytes 0.8 thou/uL (0.11-0.59); #Neutrophils 3.7 thou/uL (1.40-6.50); %Eosinophils 1.8 % (0.0-10.0); %Lymphocytes 29.5 % (21.0-51.0); %Monocytes 12.1 % (0.0-10.0); %Neutrophils 55.6 % (42.0-75.0); Hemoglobin 11.9 g/dL (14.0-18.0); Mean Corpuscular HGB CONC 30.3 g/dL (32.0-36.0); Mean Corpuscular Volume 89.3 fL (78.0-98.0); Mean Platelet Volume 6.8 fL (7.4-10.4); Platelet Count 362 thou/uL (130-400); RBC Distribution Width 15.9 % (11.5-14.5); White Blood Cell (WBC) Count 6.7 thou/uL (4.8-10.8)
[2018-07-13 09:36] LABS: INR-International Normal Ratio 1.1; PTT 31.7 SEC (22.9-36.1)
[2018-07-13 09:52] LABS: ALT (SGPT) 7 U/L (8-55); AST (SGOT) 10 U/L (5-34); Albumin 4.4 g/dL (3.4-4.8); Alkaline Phosphatase 42 U/L (40-150); Anion Gap 11 mmol/L (10-20); BUN (Urea Nitrogen) 10 mg/dL (8.4-25.7); Bilirubin, Total 0.5 mg/dL (0.2-1.2); Calc. Creatinine Clearance 98 mL/min (70-130); Calcium 10.7 mg/dL (7.8-10.44); Carbon Dioxide 31 mmol/L (23-31); Cardiac Risk 1.9 (Less than 4.5); Chloride 102 mmol/L (98-107); Estimated GFR-MDRD Greater than 90; Globulin 2.4 g/dL (2.4-3.5); Glucose 129 mg/dL (83-110); Protein, Total 6.8 g/dL (5.8-8.1); Sodium 140 mmol/L (136-145)
[2018-07-13] MEDS ORDERED: Nitroglycerin 100MG/250ML BOT 0 ML ONE (10:41)
[2018-07-13] MEDS ORDERED: Heparin 10,000 UNITS/1 ML VIAL ONE (10:41)
[2018-07-13] MEDS ORDERED: Fentanyl 100 MCG/2 ML VIAL ONE (10:57)
[2018-07-13] MEDS ORDERED: Midazolam HCl 2 mg/2 ml Vial ONE (10:57)
== END 2018-07-13 14:35 | disposition home or self-care (01) ==
LOC: CCL 07:41
PROVIDERS: ATTEND Internal Medicine Cardiovascular Disease
PROC: 4A023N7 Measurement of Cardiac Sampling and Pressure, Left Heart, Percutaneous Approach (ICD-10-PCS; principal; 2018-07-13)
PROC: B2111ZZ Fluoroscopy of Multiple Coronary Arteries using Low Osmolar Contrast (ICD-10-PCS; 2018-07-13)
DX: I25.10 Atherosclerotic heart disease of native coronary artery without angina pectoris (principal); I25.2 Old myocardial infarction; I10 Essential (primary) hypertension; E11.9 Type 2 diabetes mellitus without complications; Z79.82 Long term (current) use of aspirin; Z79.84 Long term (current) use of oral hypoglycemic drugs; Z79.899 Other long term (current) drug therapy; Z88.0 Allergy status to penicillin
CPT/HCPCS: 80053; 80061; 85025; 85610; 85730; 93458; 93567; 99152; 99153; C1760; C1769; J1644; J2250; J3010

== ENCOUNTER 2018-08-08 00:50 | Outpatient (CLI) | payer MEDICARE, BC ==
[2018-08-08 11:17] LABS: Hemoglobin 12.1 g/dL (14.0-18.0); Mean Corpuscular HGB CONC 30.3 g/dL (32.0-36.0); Mean Corpuscular Hemoglobin 26.9 pg (27.0-31.0); Mean Corpuscular Volume 88.9 fL (78.0-98.0); Mean Platelet Volume 7.3 fL (7.4-10.4); Platelet Count 305 thou/uL (130-400); RBC Distribution Width 14.7 % (11.5-14.5); Red Blood Cell (RBC) Count 4.52 mill/uL (4.70-6.10); White Blood Cell (WBC) Count 11.9 thou/uL (4.8-10.8)
[2018-08-08 11:32] LABS: Anion Gap 14 mmol/L (10-20); BUN (Urea Nitrogen) 10 mg/dL (8.4-25.7); Calc. Creatinine Clearance 0 mL/min (70-130); Calcium 10.9 mg/dL (7.8-10.44); Carbon Dioxide 27 mmol/L (23-31); Chloride 103 mmol/L (98-107); Estimated GFR-MDRD 80; Glucose 127 mg/dL (83-110); Sodium 140 mmol/L (136-145)
--- NOTE | 2018-08-08 20:40 | EKG ---
Test Reason : Blood Pressure : / mmHG Vent. Rate : 093 BPM Atrial Rate : 093 BPM P-R Int : 218 ms QRS Dur : 106 ms QT Int : 368 ms P-R-T Axes : 045 043 070 degrees QTc Int : 457 ms Sinus rhythm with 1st degree A-V block Possible Anterior infarct , age undetermined Abnormal ECG When compared with ECG of 07-JAN-2018 11:44, Premature atrial complexes are no longer Present [place] interval has increased Criteria for Inferior infarct are no longer Present Nonspecific T wave abnormality no longer evident in Inferior leads Nonspecific T wave abnormality now evident in Lateral leads Confirmed by DR. Alethea FIGUEROA ([id number]) on 08/08/2018 8:40:24 PM Referred By: WILLIAN Confirmed By:DR. Alethea FIGUEROA
== END 2018-08-08 00:51 | disposition home or self-care (01) ==
LOC: LABBT 00:50
PROVIDERS: ATTEND Orthopaedic Surgery
DX: Z01.818 Encounter for other preprocedural examination (principal); M17.12 Unilateral primary osteoarthritis, left knee
CPT/HCPCS: 80048; 85027; 93005; 93010

== ENCOUNTER 2018-08-15 10:35 | Inpatient (IN) | payer MEDICARE, BC ==
[2018-08-08 09:55] VITALS: BMI 33.2
[~2018-08-15 10:35] MED LIST changes: +Dexamethasone 20 MG/5 ML VIAL ONE; +Lidocaine 1% PF 5 ML VIAL ONE; -Ondansetron HCl/PF 4 MG/2 ML Vial ONE; +PHENYLEPHRINE-NS 100 MCG/ML 10 ML SYRINGE ONE; -Ropivacaine 0.2% HCl/PF (40 MG/20 ML VIAL) ONE; -Ropivacaine 0.5% HCl/PF (150 MG/30 ML VIAL) ONE
[2018-08-15] MEDS ORDERED: Ropivacaine 0.2% HCl/PF (40 MG/20 ML VIAL) ONE (10:39)
[2018-08-15] MEDS ORDERED: Ropivacaine 0.5% HCl/PF (150 MG/30 ML VIAL) ONE (10:39)
[2018-08-15] MEDS ORDERED: Levofloxacin 500 mg/D5W 100 ml Premix Bag ONE (10:57)
[2018-08-15] MEDS ORDERED: Clindamycin/D5W 900 mg/50 ml Premix Bag ONE (10:57)
[2018-08-15] MEDS ORDERED: Fentanyl 100 MCG/2 ML VIAL ONE ×3 (12:07→15:43)
[2018-08-15] MEDS ORDERED: Midazolam HCl 2 mg/2 ml Vial ONE (12:07)
[2018-08-15] MEDS ORDERED: Zolpidem Tartrate 5 MG TAB PO PRN (12:33)
[2018-08-15] MEDS ORDERED: traMADol HCl 50 MG TAB PO PRN ×2 (12:33)
[2018-08-15] MEDS ORDERED: HYDROcodone/Acetaminophen 10/325 mg Tablet PO PRN (12:33)
[2018-08-15] MEDS ORDERED: Ondansetron PF 4 MG/2 ML Vial IVP PRN ×2 (12:33→14:28)
[2018-08-15] MEDS ORDERED: Ropivacaine HCl/PF 250 ML in Premix Bag 1 BAG NERVE BLCK SCH (12:33)
[2018-08-15] MEDS ORDERED: Promethazine HCl 25 MG/ML VIAL IM PRN ×3 (12:33→15:16)
[2018-08-15] MEDS ORDERED: Fentanyl 100 MCG/2 ML VIAL IV PRN (12:34)
[2018-08-15] MEDS ORDERED: Acetaminophen 325 MG TAB PO PRN (14:28)
[2018-08-15] MEDS ORDERED: diphenhydrAMINE 25 MG CAP PO PRN (14:28)
--- NOTE | 2018-08-15 14:51 | OP ---
DATE OF PROCEDURE: 08/15/2018 PROCEDURE PERFORMED: Left total knee arthroplasty. PREOPERATIVE DIAGNOSIS: Advanced left knee arthritis. POSTOPERATIVE DIAGNOSIS: Advanced left knee arthritis. COMPLICATIONS: None. ESTIMATED BLOOD LOSS: Minimal. ANESTHESIA: General. PRODUCT MANAGER [employer]CIAL SERVICES: Rene Hoffman PA-C. IMPLANTS: DJO total knee arthroplasty, size 9 femur PS, size eight 8, size 14 mm polyethylene with a 35 mm patella. INDICATIONS: Mr. Castro is a 73-year-old male, who has advanced knee osteoarthritis. He has been indicated for knee arthroplasty to restore mobility and relieve pain. Risks have been reviewed in detail. He elected to proceed with the operation. DESCRIPTION OF PROCEDURE: Mr. Castro was identified in the preoperative holding area. His correct extremity was marked. He was carried to the operating room. He was positioned supine. General anesthesia was induced. A multidisciplinary time-out was performed. The left lower extremity was prepped and draped in sterile fashion. We began the procedure with anterior approach to the knee. We dissected down through the subcutaneous tissues to the fascia, which was opened. We did a medial parapatellar arthrotomy. We exposed the knee joint. We excised synovium and anterior fat pad resection. We then performed a medial release. We removed osteophytes from the medial tibial plateau. Next, we everted the patella. 9 mm of patella bone was resected. We then drilled for patella button. We placed a trial patella and ensured that we reconstituted the patellar height. We flexed the knee. We then entered the intramedullary canal of the knee. We next performed our distal femoral cut with appropriate guide. We then sized the femur to a size 9. Next, we used our 4-in-1 cutting block to make our anterior, posterior, and chamfer cuts. Finally, we made a box osteotomy of the femur. At this point, we placed our extramedullary cutting guide on the tibia. We resected 2 mm from the medial tibial plateau. This allowed level of surface. We punched and drilled our tibia. We then trialed. A size 14 polyethylene gave a good and stable knee after performing a pie-crusting of the medial collateral ligament. We removed the trial components and mixed cement. We thoroughly irrigated with copious lavage. We then impacted our final components. The patient was taken to the recovery room in good condition at this point without complication after closure in layers was obtained. Job ID: [id number]
[2018-08-15] MEDS ORDERED: Promethazine HCl 25 MG/ML VIAL SLOW IVP PRN (15:16)
[2018-08-15] MEDS ORDERED: Ondansetron HCl/PF 4 MG/2 ML Vial IVP PRN (15:16)
--- NOTE | 2018-08-15 16:00 | RAD ---
LEFT KNEE TWO VIEWS: History: Status post total knee arthroplasty. FINDINGS/IMPRESSION: There are recent post op changes of total knee arthroplasty in good position and alignment. Surgical clips and soft tissue air are present. POS: C
[2018-08-15] MEDS: Ketorolac Tromethamine 30 MG/ML VIAL IVP SCH (17:13)
[2018-08-15] MEDS: Clindamycin/D5W 900 MG in Premix Bag 1 BAG IVPB SCH (17:14)
[2018-08-15] MEDS: Aspirin 81 mg Enteric Coated Tablet PO SCH (20:23)
[2018-08-15] MEDS: Ferrous Gluconate 324 MG TAB PO SCH (20:23)
[2018-08-15] MEDS: Senokot S 8.6-50 MG TAB PO SCH (20:23)
[2018-08-16] MEDS: Clindamycin/D5W 900 MG in Premix Bag 1 BAG IVPB SCH (00:15)
[2018-08-16] MEDS: Ketorolac Tromethamine 30 MG/ML VIAL IVP SCH ×4 (00:16→18:27)
[2018-08-16 06:08] LABS: Hemoglobin 10.3 g/dL (14.0-18.0); Mean Corpuscular HGB CONC 30.8 g/dL (32.0-36.0); Mean Corpuscular Hemoglobin 27.6 pg (27.0-31.0); Mean Corpuscular Volume 89.5 fL (78.0-98.0); Platelet Count 379 thou/uL (130-400); RBC Distribution Width 14.5 % (11.5-14.5); Red Blood Cell (RBC) Count 3.74 mill/uL (4.70-6.10); White Blood Cell (WBC) Count 20.2 thou/uL (4.8-10.8)
[2018-08-16] MEDS: Senokot S 8.6-50 MG TAB PO SCH ×2 (08:18→21:47)
[2018-08-16] MEDS: Aspirin 81 mg Enteric Coated Tablet PO SCH ×2 (08:18→21:49)
[2018-08-16] MEDS: Multivitamin W/ Minerals 1 TAB PO SCH (08:19)
[2018-08-16] MEDS: Ferrous Gluconate 324 MG TAB PO SCH ×2 (08:19→21:48)
[2018-08-16] MEDS: HYDROcodone/Acetaminophen 10/325 mg Tablet PO PRN (08:44)
[2018-08-16] MEDS ORDERED: Dextrose 5% in Water 1,000 ML IV PRN (09:26)
[2018-08-16] MEDS ORDERED: Calcium Carbonate 500 MG ChewTAB PO PRN (09:26)
[2018-08-16] MEDS ORDERED: Dextrose 50% Abboject 50 ML SYRINGE SLOW IVP PRN (09:26)
[2018-08-16] MEDS ORDERED: Polyethylene Glycol 3350 17 GM Packet PO PRN (09:27)
[2018-08-16] MEDS ORDERED: hydrALAZINE 20 MG/ML VIAL SLOW IVP PRN (09:27)
[2018-08-16] MEDS ORDERED: glipiZIDE 5 MG TAB PO SCH (10:30)
[2018-08-16] MEDS ORDERED: Diltiazem HCl SR 60 mg Capsule PO SCH (10:30)
--- NOTE | 2018-08-16 13:24 | PDOC.PN ---
- Subjective Encounter Start Date: 08/16/18 Encounter Start Time: 13:20 Patient seen and examined for med mngt. No CP/SOB/palpitations. No new complaints. No overnight events - Objective MAR Reviewed: Yes Vital Signs & Weight: Vital Signs (12 hours) Temp Pulse Resp BP Pulse Ox 08/16/18 09:29 100 16 95 08/16/18 08:00 92 L 08/16/18 04:30 97.6 F 102 H 20 127/74 95 Weight Admit Weight 206 lb Weight 206 lb I&O: 08/15/18 08/16/18 08/17/18 06:59 06:59 06:59 Intake Total 1200 Output Total 550 Balance 650 Result Diagrams: 08/16/18 05:42 EKG Reviewed by me: Yes (SR with 1st deg AV block) Phys Exam - Physical Examination Constitutional: NAD Respiratory: no wheezing, no rhonchi Cardiovascular: RRR, no rub Gastrointestinal: soft, non-tender, positive bowel sounds Musculoskeletal: no edema Neurological: non-focal, moves all 4 limbs Psychiatric: A&O x 3 Dx/Plan - Plan DVT proph w/SCDs 1. CAD 2. COPD 3. HTN 4. DM2 5. Leucocytosis - unlikely to be infectious 6. CKD 2 7. BPH 8. GERD 9. HLD 10. Obesity BMI 33.2 PLAN: Cont ASA Add Sliding scale Resume Glipizide Resume Diltiazem Hold Enalapril Resume other selected home meds AM labs Full code DPOA - makes own decision with the help of his family Review of Systems - Review of Systems Respiratory: negative: Cough, Dry, Shortness of Breath, Hemoptysis, SOB with Excertion, Pleuritic Pain, Sputum, Wheezing Cardiovascular: negative: chest pain, palpitations, orthopnea, paroxysmal nocturnal dyspnea, edema, light headedness, other Gastrointestinal: negative: Nausea, Vomiting, Abdominal Pain, Diarrhea, Constipation, Melena, Hematochezia, Other Genitourinary: negative: Dysuria, Frequency, Incontinence, Hematuria, Retention , Other - Medications/Allergies Allergies/Adverse Reactions: Allergies Allergy/AdvReac Type Severity Reaction Status Date / Time Penicillins Allergy Intermediate Verified 08/08/18 09:55 egg Allergy Verified 08/08/18 09:55 Medications: Current Medications Acetaminophen (Tylenol) 650 mg PO Q4H PRN PRN Reason: Headache/Fever or Pain Hydrocodone Bitart/Acetaminophen ([place] 10/325) 1 tab PO Q4H PRN PRN Reason: Pain (1-3) Last Admin: 08/16/18 08:44 Dose: 1 tab Hydrocodone Bitart/Acetaminophen ([place] 10/325) 2 tab PO Q4H PRN PRN Reason: PAIN (4-6) Albuterol/Ipratropium (Duoneb) 3 ml NEB Q4FT-FE PRN PRN Reason: SOB &/or Wheezing Last Admin: 08/16/18 09:29 Dose: 3 ml Aspirin (Ecotrin) 81 mg PO BID [facility] Last Admin: 08/16/18 08:18 Dose: 81 mg Atorvastatin Calcium (Lipitor) 10 mg PO HS [facility] Bupropion HCl (Wellbutrin) 100 mg PO TID [facility] Calcium Carbonate (Tums) 1,000 mg PO Q4H PRN PRN Reason: Heartburn or Indigestion Dextrose/Water (Dextrose 50%) 25 gm SLOW IVP PRN PRN PRN Reason: Hypoglycemia Diltiazem HCl (Cardizem Sr) 60 mg PO BID [facility] Diphenhydramine HCl (Benadryl) 25 mg PO Q6H PRN PRN Reason: Itching Donepezil HCl (Aricept) 10 mg PO HS [facility] Enalapril Maleate (Vasotec) 10 mg PO DAILY [facility] Fenofibrate (Tricor) 145 mg PO HS [facility] Fentanyl (Sublimaze) 50 mcg IV Q1H PRN PRN Reason: .BREAKTHROUGH PAIN Ferrous Gluconate (Fergon) 324 mg PO BID [facility] Last Admin: 08/16/18 08:19 Dose: 324 mg Finasteride (Proscar) 5 mg PO HS [facility] Glipizide (Glucotrol) 5 mg PO DAILY-AC [facility] Glucagon (Glucagon) 1 mg IM PRN PRN PRN Reason: Hypoglycemia Guaifenesin (Mucinex) 1,200 mg PO Q12HR PRN PRN Reason: Cough Hydralazine HCl (Apresoline) 10 mg SLOW IVP Q4H PRN PRN Reason: SBP Greater Than 180 Ropivacaine 250 ml/ Device 250 mls @ 10 mls/hr NERVE BLCK INF [facility] Dextrose/Water (D5w) 1,000 mls @ 0 mls/hr IV .Q0M PRN PRN Reason: Hypoglycemia Insulin Human Regular (Humulin R) 0 units SC .MILD SLIDING SCALE PRN PRN Reason: Mild Correctional Scale Insulin Human Regular (Humulin R) 0 units SC .BEDTIME SLIDING SC PRN PRN Reason: Bedtime Correctional Scale Ipratropium [place] (Atrovent) 2.5 ml NEB [id number] [facility] Iron/Minerals/Multivitamins (Theragran M) 1 tab PO DAILY [facility] Last Admin: 08/16/18 08:19 Dose: 1 tab Ketorolac Tromethamine (Toradol) 15 mg IVP Q6HR [facility] Stop: 08/17/18 12:01 Last Admin: 08/16/18 12:49 Dose: 15 mg Mometasone Furoate/Formoterol Fumar (Dulera 200 Mcg/5 Mcg Inhaler) 2 puff INH BID-RT [facility] Montelukast Sodium (Singulair) 10 mg PO QPM [facility] Ondansetron HCl (Zofran) 4 mg IVP Q6H PRN PRN Reason: Nausea/Vomiting Last Admin: 08/16/18 06:23 Dose: 4 mg Pantoprazole Sodium (Protonix) 40 mg PO DAILY [facility] Pioglitazone HCl (Actos) 30 mg PO DAILY [facility] Polyethylene Glycol (Miralax) 17 gm PO DAILY PRN PRN Reason: Constipation Promethazine HCl (Phenergan) 12.5 mg IM Q4H PRN PRN Reason: Nausea/Vomiting Senna/Docusate Sodium (Senokot S) 2 tab PO BID [facility] Last Admin: 08/16/18 08:18 Dose: 2 tab Sertraline HCl (Zoloft) 150 mg PO HS [facility] Sodium Chloride (Flush - Normal Saline) 10 ml IVF PRN PRN PRN Reason: Saline Flush Tamsulosin HCl (Flomax) 0.4 mg PO HS [facility] Tramadol HCl (Ultram) 50 mg PO Q6H PRN PRN Reason: Mild Pain (1-3) Tramadol HCl (Ultram) 100 mg PO Q6H PRN PRN Reason: Moderate Pain 4-6 Zolpidem Tartrate (Ambien) 5 mg PO HSPRN PRN PRN Reason: Insomnia
[2018-08-16] MEDS: Ipratropium Bromide 2.5 ml Neb NEB SCH ×2 (13:28→19:37)
[2018-08-16] MEDS: buPROPion HCl 100 MG TAB PO SCH ×2 (16:21→21:47)
[2018-08-16] MEDS: Insulin Regular 300 UNITS/3 ML VIAL SC PRN ×2 (17:52→22:02)
[2018-08-16] MEDS: Mometasone/Formoterol 120 PUFF INHALER INH SCH (19:35)
[2018-08-16] MEDS ORDERED: guaiFENesin ER 600 MG TAB PO PRN (21:00)
[2018-08-16] MEDS: Fenofibrate Nanocrystallized 145 MG TAB PO SCH (21:45)
[2018-08-16] MEDS: Finasteride 5 MG TAB PO SCH (21:46)
[2018-08-16] MEDS: Tamsulosin HCl 0.4 MG CAP PO SCH (21:46)
[2018-08-16] MEDS: Atorvastatin Calcium 10 MG TAB PO SCH (21:47)
[2018-08-16] MEDS: Montelukast Sodium 10 mg Tablet PO SCH (21:48)
[2018-08-16] MEDS: Donepezil HCl 10 MG TAB PO SCH (21:48)
[2018-08-16] MEDS: Diltiazem HCl SR 60 mg Capsule PO SCH (21:49)
[2018-08-17] MEDS: Ipratropium Bromide 2.5 ml Neb NEB SCH ×5 (00:45→22:29)
[2018-08-17] MEDS: Ketorolac Tromethamine 30 MG/ML VIAL IVP SCH ×3 (01:16→18:27)
[2018-08-17 04:47] LABS: Hemoglobin 8.1 g/dL (14.0-18.0); Mean Corpuscular HGB CONC 30.4 g/dL (32.0-36.0); Mean Corpuscular Hemoglobin 27.5 pg (27.0-31.0); Mean Corpuscular Volume 90.6 fL (78.0-98.0); Mean Platelet Volume 7.2 fL (7.4-10.4); Platelet Count 312 thou/uL (130-400); RBC Distribution Width 14.2 % (11.5-14.5); Red Blood Cell (RBC) Count 2.95 mill/uL (4.70-6.10); White Blood Cell (WBC) Count 19.6 thou/uL (4.8-10.8)
[2018-08-17 05:03] LABS: Anion Gap 11 mmol/L (10-20); BUN (Urea Nitrogen) 25 mg/dL (8.4-25.7); Calc. Creatinine Clearance 85 mL/min (70-130); Calcium 10.4 mg/dL (7.8-10.44); Carbon Dioxide 30 mmol/L (23-31); Chloride 99 mmol/L (98-107); Estimated GFR-MDRD 72; Glucose 162 mg/dL (83-110); Sodium 136 mmol/L (136-145)
[2018-08-17 05:04] LABS: Phosphorus 3.6 mg/dL (2.3-4.7)
[2018-08-17] MEDS: Insulin Regular 300 UNITS/3 ML VIAL SC PRN ×3 (06:45→22:32)
[2018-08-17] MEDS: glipiZIDE 5 MG TAB PO SCH (06:45)
[2018-08-17] MEDS: Mometasone/Formoterol 120 PUFF INHALER INH SCH ×2 (06:49→22:06)
[2018-08-17 08:25] LABS: Magnesium 1.5 mg/dL (1.6-2.6)
[2018-08-17] MEDS ORDERED: Magnesium 2 GM/50 ML 2 GM in Premix Bag 1 BAG IVPB SCH ×2 (08:45→09:15)
[2018-08-17] MEDS: Aspirin 81 mg Enteric Coated Tablet PO SCH ×2 (09:26→22:21)
[2018-08-17] MEDS: Pioglitazone HCl 15 MG TAB PO SCH (09:26)
[2018-08-17] MEDS: Senokot S 8.6-50 MG TAB PO SCH ×2 (09:26→22:19)
[2018-08-17] MEDS: buPROPion HCl 100 MG TAB PO SCH ×3 (09:26→22:20)
[2018-08-17] MEDS: HYDROcodone/Acetaminophen 10/325 mg Tablet PO PRN (09:27)
[2018-08-17] MEDS: Diltiazem HCl SR 60 mg Capsule PO SCH ×3 (09:31→22:37)
[2018-08-17] MEDS: Ferrous Gluconate 324 MG TAB PO SCH ×2 (09:33→22:21)
[2018-08-17] MEDS: Multivitamin W/ Minerals 1 TAB PO SCH (09:33)
[2018-08-17 14:29] LABS: Bilirubin Negative (Negative); Blood, Urine Small (Negative); Clarity CLEAR (Clear); Glucose, Urine (Dipstick) 500 mg/dL (Negative); Leukocyte Negative (Negative); Nitrite Negative (Negative); Protein, Urine (Dipstick) Negative (Neg-Trace); Urobilinogen 0.2 mg/dL (0.2-1.0)
[2018-08-17 14:30] LABS: Bacteria/HPF None Seen HPF (None Seen); Hyaline Casts/LPF 4-6 HYALINE CAST LPF (0-3 Hyaline); Pathc Cast-AUWi Flag 0.95 (0-2.49); Squamous Epithelial None Seen HPF (0-3); WBC/HPF 0-3 HPF (0-3)
--- NOTE | 2018-08-17 18:14 | PDOC.PN ---
- Subjective Encounter Start Date: 08/17/18 Encounter Start Time: 15:00 Patient seen and examined for med mngt. No new complaints. No overnight events - Objective MAR Reviewed: Yes Vital Signs & Weight: Vital Signs (12 hours) Temp Pulse Resp BP Pulse Ox 08/17/18 16:10 97.8 F 107 H 18 103/53 L 92 L 08/17/18 13:51 90 16 08/17/18 11:34 97.7 F 98 18 108/63 92 L 08/17/18 07:36 98.5 F 107/64 08/17/18 06:49 110 H 20 Weight Admit Weight 206 lb Weight 206 lb I&O: 08/16/18 08/17/18 08/18/18 06:59 06:59 06:59 Intake Total 1200 460 Output Total 550 600 250 Balance 650 -600 210 Result Diagrams: 08/18/18 15:20 08/17/18 04:15 Additional Labs: Accuchecks 08/17/18 08/17/18 08/17/18 15:49 11:31 05:52 POC Glucose 100 319 H 207 H 08/16/18 21:12 POC Glucose 221 H Laboratory Tests 08/17/18 08/17/18 04:15 04:15 Phosphorus 3.6 Magnesium 1.5 L Phys Exam - Physical Examination Constitutional: NAD Respiratory: no wheezing, no rhonchi Cardiovascular: RRR, no rub Gastrointestinal: soft, non-tender, positive bowel sounds Dx/Plan - Plan DVT proph w/SCDs 1. CAD 2. COPD 3. HTN 4. DM2 5. Hypomagnesemia 6. CKD 2 7. BPH 8. GERD 9. HLD 10. Obesity BMI 33.2 11. Leucocytosis - unlikely to be infectious PLAN: Replace Magnesium Resume Metformin Cont Glipizide with Sliding scale Cont Diltiazem/Enalapril with holding parameters. Resume other selected home meds AM labs Review of Systems - Review of Systems Cardiovascular: negative: chest pain, palpitations, orthopnea, paroxysmal nocturnal dyspnea, edema, light headedness, other Gastrointestinal: negative: Nausea, Vomiting, Abdominal Pain, Diarrhea, Constipation, Melena, Hematochezia, Other - Medications/Allergies Allergies/Adverse Reactions: Allergies Allergy/AdvReac Type Severity Reaction Status Date / Time Penicillins Allergy Intermediate Verified 08/08/18 09:55 egg Allergy Verified 08/08/18 09:55 Medications: Current Medications Acetaminophen (Tylenol) 650 mg PO Q4H PRN PRN Reason: Headache/Fever or Pain Hydrocodone Bitart/Acetaminophen ([place] 10/325) 1 tab PO Q4H PRN PRN Reason: Pain (1-3) Last Admin: 08/17/18 09:27 Dose: 1 tab Hydrocodone Bitart/Acetaminophen ([place] 10/325) 2 tab PO Q4H PRN PRN Reason: PAIN (4-6) Albuterol/Ipratropium (Duoneb) 3 ml NEB [id number] PRN PRN Reason: SOB &/or Wheezing Last Admin: 08/16/18 09:29 Dose: 3 ml Aspirin (Ecotrin) 81 mg PO BID [facility] Last Admin: 08/17/18 09:26 Dose: 81 mg Atorvastatin Calcium (Lipitor) 10 mg PO HS [facility] Last Admin: 08/16/18 21:47 Dose: 10 mg Bupropion HCl (Wellbutrin) 100 mg PO TID [facility] Last Admin: 08/17/18 09:26 Dose: 100 mg Calcium Carbonate (Tums) 1,000 mg PO Q4H PRN PRN Reason: Heartburn or Indigestion Dextrose/Water (Dextrose 50%) 25 gm SLOW IVP PRN PRN PRN Reason: Hypoglycemia Diltiazem HCl (Cardizem Sr) 60 mg PO BID [facility] Last Admin: 08/17/18 09:31 Dose: Not Given Diphenhydramine HCl (Benadryl) 25 mg PO Q6H PRN PRN Reason: Itching Donepezil HCl (Aricept) 10 mg PO [facility] Last Admin: 08/16/18 21:48 Dose: 10 mg Enalapril Maleate (Vasotec) 10 mg PO DAILY [facility] Last Admin: 08/17/18 09:31 Dose: Not Given Fenofibrate (Tricor) 145 mg PO [facility] Last Admin: 08/16/18 21:45 Dose: 145 mg Fentanyl (Sublimaze) 50 mcg IV Q1H PRN PRN Reason: .BREAKTHROUGH PAIN Ferrous Gluconate (Fergon) 324 mg PO BID [facility] Last Admin: 08/17/18 09:33 Dose: 324 mg Finasteride (Proscar) 5 mg PO [facility] Last Admin: 08/16/18 21:46 Dose: 5 mg Glipizide (Glucotrol) 5 mg PO DAILY-AC [facility] Last Admin: 08/17/18 06:45 Dose: 5 mg Glucagon (Glucagon) 1 mg IM PRN PRN PRN Reason: Hypoglycemia Guaifenesin (Mucinex) 1,200 mg PO Q12HR PRN PRN Reason: Cough Hydralazine HCl (Apresoline) 10 mg SLOW IVP Q4H PRN PRN Reason: SBP Greater Than 180 Ropivacaine 250 ml/ Device 250 mls @ 10 mls/hr NERVE BLCK INF [facility] Last Admin: 08/16/18 16:36 Dose: 250 mls Dextrose/Water (D5w) 1,000 mls @ 0 mls/hr IV .Q0M PRN PRN Reason: Hypoglycemia Insulin Human Regular (Humulin R) 0 units SC .MILD SLIDING SCALE PRN PRN Reason: Mild Correctional Scale Last Admin: 08/17/18 11:48 Dose: 5 unit Insulin Human Regular (Humulin R) 0 units SC .BEDTIME SLIDING SC PRN PRN Reason: Bedtime Correctional Scale Last Admin: 08/16/18 22:02 Dose: 2 unit Ipratropium [place] (Atrovent) 2.5 ml NEB [id number] [facility] Last Admin: 08/17/18 13:51 Dose: 2.5 ml Iron/Minerals/Multivitamins (Theragran M) 1 tab PO DAILY [facility] Last Admin: 08/17/18 09:33 Dose: 1 tab Metformin HCl (Glucophage) 500 mg PO BID-WM [facility] Mometasone Furoate/Formoterol Fumar (Dulera 200 Mcg/5 Mcg Inhaler) 2 puff INH BID-RT [facility] Last Admin: 08/17/18 06:49 Dose: 2 puff Montelukast Sodium (Singulair) 10 mg PO QPM [facility] Last Admin: 08/16/18 21:48 Dose: 10 mg Ondansetron HCl (Zofran) 4 mg IVP Q6H PRN PRN Reason: Nausea/Vomiting Last Admin: 08/16/18 06:23 Dose: 4 mg Pantoprazole Sodium (Protonix) 40 mg PO DAILY [facility] Last Admin: 08/17/18 09:26 Dose: 40 mg Pioglitazone HCl (Actos) 30 mg PO DAILY [facility] Last Admin: 08/17/18 09:26 Dose: 30 mg Polyethylene Glycol (Miralax) 17 gm PO DAILY PRN PRN Reason: Constipation Promethazine HCl (Phenergan) 12.5 mg IM Q4H PRN PRN Reason: Nausea/Vomiting Senna/Docusate Sodium (Senokot S) 2 tab PO BID [facility] Last Admin: 08/17/18 09:26 Dose: 2 tab Sertraline HCl (Zoloft) 150 mg PO HS [facility] Last Admin: 08/16/18 21:46 Dose: 150 mg Sodium Chloride (Flush - Normal Saline) 10 ml IVF PRN PRN PRN Reason: Saline Flush Tamsulosin HCl (Flomax) 0.4 mg PO HS [facility] Last Admin: 08/16/18 21:46 Dose: 0.4 mg Tramadol HCl (Ultram) 50 mg PO Q6H PRN PRN Reason: Mild Pain (1-3) Tramadol HCl (Ultram) 100 mg PO Q6H PRN PRN Reason: Moderate Pain 4-6 Zolpidem Tartrate (Ambien) 5 mg PO HSPRN PRN PRN Reason: Insomnia
[2018-08-17] MEDS: metFORMIN 500 MG TAB PO SCH (18:25)
[2018-08-17] MEDS: Donepezil HCl 10 MG TAB PO SCH (22:16)
[2018-08-17] MEDS: Finasteride 5 MG TAB PO SCH (22:17)
[2018-08-17] MEDS: Fenofibrate Nanocrystallized 145 MG TAB PO SCH (22:17)
[2018-08-17] MEDS: Montelukast Sodium 10 mg Tablet PO SCH (22:20)
[2018-08-17] MEDS: Tamsulosin HCl 0.4 MG CAP PO SCH (22:20)
[2018-08-17] MEDS: Atorvastatin Calcium 10 MG TAB PO SCH (22:22)
[2018-08-18 05:00] LABS: Hemoglobin 7.7 g/dL (14.0-18.0); Mean Corpuscular HGB CONC 30.5 g/dL (32.0-36.0); Mean Corpuscular Hemoglobin 27.5 pg (27.0-31.0); Mean Corpuscular Volume 90.2 fL (78.0-98.0); Mean Platelet Volume 7.6 fL (7.4-10.4); Platelet Count 326 thou/uL (130-400); RBC Distribution Width 14.2 % (11.5-14.5); Red Blood Cell (RBC) Count 2.81 mill/uL (4.70-6.10)
[2018-08-18] MEDS: Insulin Regular 300 UNITS/3 ML VIAL SC PRN ×3 (05:43→17:38)
[2018-08-18] MEDS: glipiZIDE 5 MG TAB PO SCH ×2 (06:31→17:37)
[2018-08-18] MEDS: Mometasone/Formoterol 120 PUFF INHALER INH SCH ×2 (06:46→19:19)
[2018-08-18] MEDS: Ipratropium Bromide 2.5 ml Neb NEB SCH ×4 (06:54→23:51)
[2018-08-18] MEDS: Diltiazem HCl SR 60 mg Capsule PO SCH ×2 (08:52→20:11)
[2018-08-18] MEDS: Pioglitazone HCl 15 MG TAB PO SCH (08:53)
[2018-08-18] MEDS: Ferrous Gluconate 324 MG TAB PO SCH ×2 (08:53→20:11)
[2018-08-18] MEDS: metFORMIN 500 MG TAB PO SCH ×2 (08:53→17:37)
[2018-08-18] MEDS: buPROPion HCl 100 MG TAB PO SCH ×3 (08:53→20:09)
[2018-08-18] MEDS: Aspirin 81 mg Enteric Coated Tablet PO SCH ×2 (08:53→20:09)
[2018-08-18] MEDS: Senokot S 8.6-50 MG TAB PO SCH ×2 (08:54→20:10)
[2018-08-18] MEDS: Multivitamin W/ Minerals 1 TAB PO SCH (08:58)
[2018-08-18 15:37] LABS: Hemoglobin 8.6 g/dL (14.0-18.0); Platelet Count 306 thou/uL (130-400)
--- NOTE | 2018-08-18 18:20 | PDOC.PN ---
- Subjective Encounter Start Date: 08/18/18 Encounter Start Time: 10:30 Patient seen and examined for medical mngt. No CP. Some pain over the surgical site. No new complaints. No overnight events - Objective MAR Reviewed: Yes Vital Signs & Weight: Vital Signs (12 hours) Temp Pulse Pulse Resp BP BP BP 08/18/18 15:59 97.9 F 118 H 20 127/67 08/18/18 14:15 98.1 F 96 20 101/61 08/18/18 13:56 90 16 08/18/18 10:55 97.9 F 104 H 20 96/62 08/18/18 10:40 98.0 F 106 H 20 104/66 08/18/18 08:53 121/73 08/18/18 08:21 98.3 F 111 H 20 121/73 08/18/18 06:46 100 16 Pulse Ox 08/18/18 15:59 94 L 08/18/18 14:15 94 L 08/18/18 13:56 08/18/18 10:55 94 L 08/18/18 10:40 93 L 08/18/18 08:53 08/18/18 08:21 94 L 08/18/18 06:46 Weight Admit Weight 206 lb Weight 206 lb I&O: 08/17/18 08/18/18 08/19/18 06:59 06:59 06:59 Intake Total 940 350 Output Total 600 250 Balance -600 690 350 Result Diagrams: 08/18/18 15:20 08/17/18 04:15 Additional Labs: Accuchecks 08/18/18 08/18/18 08/18/18 15:36 10:46 05:40 POC Glucose 266 H 301 H 200 H 08/17/18 22:33 POC Glucose 229 H Phys Exam - Physical Examination Constitutional: NAD Respiratory: no wheezing, no rhonchi Cardiovascular: RRR, no rub Gastrointestinal: soft, non-tender, positive bowel sounds Musculoskeletal: no edema Dx/Plan - Plan DVT proph w/SCDs 1. CAD 2. Anemia - probably due to surgical blood loss 3. HTN 4. DM2 - uncontrolled 5. Hypomagnesemia 6. CKD 2 7. BPH 8. GERD 9. HLD 10. Obesity BMI 33.2 11. COPD/ Leucocytosis - unlikely to be infectious PLAN: Change Glipizide to BID s/p 1 unit PRBC Cont Metformin Cont Sliding scale Cont other meds including Diltiazem/Enalapril with holding parameters. Cont to monitor Review of Systems - Review of Systems Respiratory: negative: Cough, Dry, Shortness of Breath, Hemoptysis, SOB with Excertion, Pleuritic Pain, Sputum, Wheezing Cardiovascular: negative: chest pain, palpitations, orthopnea, paroxysmal nocturnal dyspnea, edema, light headedness, other Gastrointestinal: negative: Nausea, Vomiting, Abdominal Pain, Diarrhea, Constipation, Melena, Hematochezia, Other - Medications/Allergies Allergies/Adverse Reactions: Allergies Allergy/AdvReac Type Severity Reaction Status Date / Time Penicillins Allergy Intermediate Verified 08/08/18 09:55 egg Allergy Verified 08/08/18 09:55 Medications: Current Medications Acetaminophen (Tylenol) 650 mg PO Q4H PRN PRN Reason: Headache/Fever or Pain Hydrocodone Bitart/Acetaminophen ([place] 10/325) 1 tab PO Q4H PRN PRN Reason: Pain (1-3) Last Admin: 08/17/18 09:27 Dose: 1 tab Hydrocodone Bitart/Acetaminophen ([place] 10/325) 2 tab PO Q4H PRN PRN Reason: PAIN (4-6) Albuterol/Ipratropium (Duoneb) 3 ml NEB [id number] PRN PRN Reason: SOB &/or Wheezing Last Admin: 08/18/18 13:56 Dose: 3 ml Aspirin (Ecotrin) 81 mg PO BID [facility] Last Admin: 08/18/18 08:53 Dose: 81 mg Atorvastatin Calcium (Lipitor) 10 mg PO HS [facility] Last Admin: 08/17/18 22:22 Dose: 10 mg Bupropion HCl (Wellbutrin) 100 mg PO TID [facility] Last Admin: 08/18/18 14:35 Dose: 100 mg Calcium Carbonate (Tums) 1,000 mg PO Q4H PRN PRN Reason: Heartburn or Indigestion Dextrose/Water (Dextrose 50%) 25 gm SLOW IVP PRN PRN PRN Reason: Hypoglycemia Diltiazem HCl (Cardizem Sr) 60 mg PO BID [facility] Last Admin: 08/18/18 08:52 Dose: 60 mg Diphenhydramine HCl (Benadryl) 25 mg PO Q6H PRN PRN Reason: Itching Donepezil HCl (Aricept) 10 mg PO [facility] Last Admin: 08/17/18 22:16 Dose: 10 mg Enalapril Maleate (Vasotec) 10 mg PO DAILY [facility] Last Admin: 08/18/18 08:53 Dose: 10 mg Fenofibrate (Tricor) 145 mg PO HS [facility] Last Admin: 08/17/18 22:17 Dose: 145 mg Fentanyl (Sublimaze) 50 mcg IV Q1H PRN PRN Reason: .BREAKTHROUGH PAIN Ferrous Gluconate (Fergon) 324 mg PO BID [facility] Last Admin: 08/18/18 08:53 Dose: 324 mg Finasteride (Proscar) 5 mg PO [facility] Last Admin: 08/17/18 22:17 Dose: 5 mg Glipizide (Glucotrol) 5 mg PO BID-[facility] Glucagon (Glucagon) 1 mg IM PRN PRN PRN Reason: Hypoglycemia Guaifenesin (Mucinex) 1,200 mg PO Q12HR PRN PRN Reason: Cough Hydralazine HCl (Apresoline) 10 mg SLOW IVP Q4H PRN PRN Reason: SBP Greater Than 180 Ropivacaine 250 ml/ Device 250 mls @ 10 mls/hr NERVE BLCK INF [facility] Last Admin: 08/16/18 16:36 Dose: 250 mls Dextrose/Water (D5w) 1,000 mls @ 0 mls/hr IV .Q0M PRN PRN Reason: Hypoglycemia Insulin Human Regular (Humulin R) 0 units SC .MILD SLIDING SCALE PRN PRN Reason: Mild Correctional Scale Last Admin: 08/18/18 12:40 Dose: 5 unit Insulin Human Regular (Humulin R) 0 units SC .BEDTIME SLIDING SC PRN PRN Reason: Bedtime Correctional Scale Last Admin: 08/17/18 22:32 Dose: 2 unit Ipratropium [place] (Atrovent) 2.5 ml NEB [id number] [facility] Last Admin: 08/18/18 13:58 Dose: Not Given Iron/Minerals/Multivitamins (Theragran M) 1 tab PO DAILY [facility] Last Admin: 08/18/18 08:58 Dose: 1 tab Metformin HCl (Glucophage) 500 mg PO BID-[facility] Last Admin: 08/18/18 08:53 Dose: 500 mg Mometasone Furoate/Formoterol Fumar (Dulera 200 Mcg/5 Mcg Inhaler) 2 puff INH BID-RT [facility] Last Admin: 08/18/18 06:46 Dose: 2 puff Montelukast Sodium (Singulair) 10 mg PO QPM [facility] Last Admin: 08/17/18 22:20 Dose: 10 mg Ondansetron HCl (Zofran) 4 mg IVP Q6H PRN PRN Reason: Nausea/Vomiting Last Admin: 08/16/18 06:23 Dose: 4 mg Pantoprazole Sodium (Protonix) 40 mg PO DAILY [facility] Last Admin: 08/18/18 08:52 Dose: 40 mg Pioglitazone HCl (Actos) 30 mg PO DAILY [facility] Last Admin: 08/18/18 08:53 Dose: 30 mg Polyethylene Glycol (Miralax) 17 gm PO DAILY PRN PRN Reason: Constipation Promethazine HCl (Phenergan) 12.5 mg IM Q4H PRN PRN Reason: Nausea/Vomiting Senna/Docusate Sodium (Senokot S) 2 tab PO BID [facility] Last Admin: 08/18/18 08:54 Dose: 2 tab Sertraline HCl (Zoloft) 150 mg PO HS [facility] Last Admin: 08/17/18 22:19 Dose: 150 mg Sodium Chloride (Flush - Normal Saline) 10 ml IVF PRN PRN PRN Reason: Saline Flush Last Admin: 08/18/18 08:52 Dose: 10 ml Tamsulosin HCl (Flomax) 0.4 mg PO HS [facility] Last Admin: 08/17/18 22:20 Dose: 0.4 mg Tramadol HCl (Ultram) 50 mg PO Q6H PRN PRN Reason: Mild Pain (1-3) Tramadol HCl (Ultram) 100 mg PO Q6H PRN PRN Reason: Moderate Pain 4-6 Last Admin: 08/18/18 08:54 Dose: 100 mg Zolpidem Tartrate (Ambien) 5 mg PO HSPRN PRN PRN Reason: Insomnia
[2018-08-18] MEDS: HYDROcodone/Acetaminophen 10/325 mg Tablet PO PRN (19:40)
[2018-08-18] MEDS: Fenofibrate Nanocrystallized 145 MG TAB PO SCH (20:08)
[2018-08-18] MEDS: Atorvastatin Calcium 10 MG TAB PO SCH (20:08)
[2018-08-18] MEDS: Montelukast Sodium 10 mg Tablet PO SCH (20:09)
[2018-08-18] MEDS: Finasteride 5 MG TAB PO SCH (20:09)
[2018-08-18] MEDS: Tamsulosin HCl 0.4 MG CAP PO SCH (20:10)
[2018-08-18] MEDS: Donepezil HCl 10 MG TAB PO SCH (20:10)
[2018-08-19 06:40] LABS: Hemoglobin 8.7 g/dL (14.0-18.0); Mean Corpuscular HGB CONC 30.5 g/dL (32.0-36.0); Mean Corpuscular Hemoglobin 27.9 pg (27.0-31.0); Mean Corpuscular Volume 91.4 fL (78.0-98.0); Mean Platelet Volume 7.4 fL (7.4-10.4); Platelet Count 357 thou/uL (130-400); RBC Distribution Width 14.1 % (11.5-14.5); Red Blood Cell (RBC) Count 3.14 mill/uL (4.70-6.10); White Blood Cell (WBC) Count 13.1 thou/uL (4.8-10.8)
[2018-08-19] MEDS: glipiZIDE 5 MG TAB PO SCH ×2 (06:43→16:29)
[2018-08-19] MEDS: metFORMIN 500 MG TAB PO SCH ×2 (09:32→16:29)
[2018-08-19] MEDS: Aspirin 81 mg Enteric Coated Tablet PO SCH (09:32)
[2018-08-19] MEDS: Diltiazem HCl SR 60 mg Capsule PO SCH (09:32)
[2018-08-19] MEDS: Multivitamin W/ Minerals 1 TAB PO SCH (09:33)
[2018-08-19] MEDS: Pioglitazone HCl 15 MG TAB PO SCH (09:33)
[2018-08-19] MEDS: buPROPion HCl 100 MG TAB PO SCH ×2 (09:33→16:29)
[2018-08-19] MEDS: Senokot S 8.6-50 MG TAB PO SCH (09:33)
[2018-08-19] MEDS: Ferrous Gluconate 324 MG TAB PO SCH (09:33)
[2018-08-19] MEDS: HYDROcodone/Acetaminophen 10/325 mg Tablet PO PRN ×2 (09:34→16:28)
[2018-08-19] MEDS: Ipratropium Bromide 2.5 ml Neb NEB SCH ×2 (09:47→13:36)
[2018-08-19] MEDS: Mometasone/Formoterol 120 PUFF INHALER INH SCH (09:56)
[2018-08-19 16:57] VITALS: BP 124/68; TEMP 97.8
--- NOTE | 2018-08-22 09:02 | DIS ---
DATE OF ADMISSION: 08/15/2018 DATE OF DISCHARGE: 08/19/2018 PREOPERATIVE/POSTOPERATIVE DIAGNOSIS: Left knee degenerative joint disease/osteoarthritis. PROCEDURE: The patient underwent left total knee replacement. HOSPITAL STAY: Unremarkable. The patient was little slow due to pain, but he was seen by our medical service, Physical Therapy, Occupational Therapy, and did quite well through the rest of his visit. He had no postoperative complications. DISCHARGE CONDITION: Good/stable. DISPOSITION: To inpatient rehab. Follow up would be an 10 to 14 days, sooner if there is problems and/or concerns. DISCHARGE MEDICATIONS: Given with the usage instructions. Job ID: [id number]
--- NOTE | 2018-08-22 14:14 | PQF ---
LISBETH MCCARTHY STEWART PA-C [id number] [facility] 3319 [id number] CLINICAL DOCUMENTATION CLARIFICATION FORM: POST DISCHARGE Addendum to original discharge summary date: ____ Late entry note date: __ DATE: 08/22 ATTN: Dr. Hoffman Please exercise your independent, professional judgment in responding to the clarification form. Clinical indicators are provided on the bottom of this form for your review Please check appropriate box(s): [ ] Acute blood loss anemia [ ] Post-op anemia related to acute blood loss [xx ] Chronic Anemia: [ ] Blood loss [ ] Hemolytic [ ] Simple [ ] Due to Vitamin B12 Deficiency [ ] Other [ ] Anemia of Chronic Disease (please specify) [ ] Other diagnosis [ ] Unable to determine In addition, please specify: Present on Admission (POA): [ ] Yes [ ] No [ ] Unable to determine For continuity of documentation, please document condition throughout progress notes and discharge summary. Thank You. CLINICAL INDICATORS - SIGNS / SYMPTOMS / LABS Post op anemia--08/18 Progress note "Anemia probably due to surgical blood loss"--08/20 Progress note HGB: 7.7, HCT: 25.3---08/18 Labs HGB: 8.7, HCT: 28.7---08/19 Labs Estimated blood loss: Miminal--08/15 OP note RISK FACTORS Left total knee arthroplasty---08/15 OP note TREATMENTS: Transfusion of blood products-Packed red blood cells--Ordered 08/18/18 Thank you, Nichol Candelaria, [facility] 08/22/18 2:10 PM (This form is maintained as a part of the permanent medical record) 2014 [employer] All Rights Reserved Nichol [email or web address] [phone] JANAY
== END 2018-08-19 18:06 | DRG 470 ==
LOC: SDC 10:35 → SJJU 10:38 → SDC 10:38 → SJJU 14:28 → SDC 08-19 08:49
PROVIDERS: ADMIT Orthopaedic Surgery; ATTEND Orthopaedic Surgery
PROC: 0SRD0J9 Replacement of Left Knee Joint with Synthetic Substitute, Cemented, Open Approach (ICD-10-PCS; principal; 2018-08-15)
PROC: 30233N1 Transfusion of Nonautologous Red Blood Cells into Peripheral Vein, Percutaneous Approach (ICD-10-PCS; 2018-08-18)
DX: M17.12 Unilateral primary osteoarthritis, left knee (principal); I25.10 Atherosclerotic heart disease of native coronary artery without angina pectoris; I12.9 Hypertensive chronic kidney disease with stage 1 through stage 4 chronic kidney disease, or unspecified chronic kidney disease; E11.22 Type 2 diabetes mellitus with diabetic chronic kidney disease; N18.2 Chronic kidney disease, stage 2 (mild); J44.9 Chronic obstructive pulmonary disease, unspecified; N40.0 Benign prostatic hyperplasia without lower urinary tract symptoms; K21.9 Gastro-esophageal reflux disease without esophagitis; E78.5 Hyperlipidemia, unspecified; E66.9 Obesity, unspecified; D53.9 Nutritional anemia, unspecified; E83.42 Hypomagnesemia; Z68.33 Body mass index [BMI] 33.0-33.9, adult; Z88.0 Allergy status to penicillin; Z91.012 Allergy to eggs; Z79.51 Long term (current) use of inhaled steroids; Z79.82 Long term (current) use of aspirin; Z79.84 Long term (current) use of oral hypoglycemic drugs; Z79.899 Other long term (current) drug therapy
CPT/HCPCS: 36415; 36416; 36430; 80048; 81001; 83735; 84100; 85027; 86850; 86900; 86901; 87086; 94640; C1713; C1776; J1100; J1815; J1885; J1956; J2001; J2250; J2405; J2704; J2795; J3010; J3475; J3490; J7620; P9016

== ENCOUNTER 2018-09-22 13:29 | Observation (INO) | payer MEDICARE, BC ==
[2018-09-22] MEDS ORDERED: cefTRIAXone\\ROCEPHIN 1 GM VIAL ONE (15:08)
[2018-09-22] MEDS ORDERED: Sodium Chloride 0.9% 100 ML ONE (15:08)
[2018-09-22] MEDS ORDERED: Vancomycin HCl 1.5 GM in Sodium Chloride 0.9% 250 ML 300 ML IVPB SCH (15:30)
[2018-09-22] MEDS ORDERED: Fentanyl 100 MCG/2 ML VIAL ONE (15:30)
[2018-09-22] MEDS ORDERED: Neomycin-Polymyxin 1 ML AMP ONE (15:31)
[2018-09-22] MEDS ORDERED: traMADol HCl 50 MG TAB PO PRN (15:32)
[2018-09-22] MEDS ORDERED: Ondansetron PF 4 MG/2 ML Vial IV PRN (15:32)
[2018-09-22] MEDS ORDERED: Fentanyl 100 MCG/2 ML VIAL SLOW IVP PRN (15:32)
[2018-09-22] MEDS ORDERED: PROPOFOL 200 MG/20 ML VIAL ONE (16:01)
[2018-09-22] MEDS ORDERED: Ondansetron PF 4 MG/2 ML Vial ONE (16:01)
[2018-09-22] MEDS ORDERED: Lidocaine 1% PF 5 ML VIAL ONE (16:01)
[2018-09-22] MEDS ORDERED: Dexamethasone 20 MG/5 ML VIAL ONE (16:01)
[2018-09-22] MEDS ORDERED: Promethazine HCl 25 MG/ML VIAL IM PRN (16:27)
[2018-09-22] MEDS ORDERED: Ondansetron HCl/PF 4 MG/2 ML Vial IVP PRN (16:27)
[2018-09-22] MEDS ORDERED: Promethazine HCl 25 MG/ML VIAL SLOW IVP PRN (16:27)
[2018-09-22 17:18] VITALS: BMI 30.2
[2018-09-22] MEDS: Acetaminophen/Codeine 30-300mg Tablet PO PRN (18:22)
[2018-09-22] MEDS: Communication Order-Pharmacy FS SCH (19:57)
[2018-09-22] MEDS: Aspirin 81 mg Enteric Coated Tablet PO SCH (20:08)
[2018-09-22] MEDS: Vancomycin HCl 1.5 GM in Sodium Chloride 0.9% 250 ML 300 ML IVPB SCH (21:15)
--- NOTE | 2018-09-22 23:14 | OP ---
DATE OF PROCEDURE: 09/22/2018 PROCEDURE PERFORMED: Left knee irrigation and debridement with wound closure. PREOPERATIVE DIAGNOSIS: Left knee arthroplasty with superficial wound infection. POSTOPERATIVE DIAGNOSIS: Left knee arthroplasty with superficial wound infection. COMPLICATIONS: None. ESTIMATED BLOOD LOSS: Minimal. ANESTHESIA: General. INDICATIONS: Mr. Castro is a 73-year-old male, who underwent a total knee arthroplasty approximately 1 month ago. He has developed redness and pain along the inferior aspect of his wound with slight drainage. He was indicated for irrigation and debridement with exploration of the wound to ensure that he does not develop a deep infection. Risks have been reviewed. He elected to proceed with the operation. DESCRIPTION OF PROCEDURE: Mr. Castro was identified in the preoperative holding area. His correct extremity was marked. He was carried to the operating room. He was positioned supine. General anesthesia was induced. A multidisciplinary time-out was performed. The left lower extremity was prepped and draped in sterile fashion. We began the procedure with extension of the patient's inferior wound 3 cm. We dissected down through the superficial tissues. There was no gross purulence. There was a small stitch, a Vicryl suture that was centered at the patient's wound, which may have been a stitch abscess. This was removed. We used a curette to debride the underlying tissues. We then thoroughly irrigated with copious lavage. We took care that this did not track deeply. We used a clean needle to aspirate the knee and this fluid was sent as well. We took cultures from the wound bed. We then loosely closed with a 3-0 nylon suture in interrupted fashion. A sterile dressing was applied. The patient was taken to the recovery room in good condition without complication at this point. Job ID: [id number]
[2018-09-23 06:12] LABS: #Lymphocytes 1.2 thou/uL (1.20-3.40); #Monocytes 0.8 thou/uL (0.11-0.59); #Neutrophils 6.3 thou/uL (1.40-6.50); %Basophils 0.2 % (0.0-1.0); %Eosinophils 0.3 % (0.0-10.0); %Lymphocytes 14.2 % (21.0-51.0); %Monocytes 9.9 % (0.0-10.0); %Neutrophils 75.5 % (42.0-75.0); Hemoglobin 10.8 g/dL (14.0-18.0); Mean Corpuscular HGB CONC 30.4 g/dL (32.0-36.0); Mean Corpuscular Volume 95.4 fL (78.0-98.0); Mean Platelet Volume 6.8 fL (7.4-10.4); Platelet Count 442 thou/uL (130-400); RBC Distribution Width 15.6 % (11.5-14.5); Red Blood Cell (RBC) Count 3.73 mill/uL (4.70-6.10); White Blood Cell (WBC) Count 8.3 thou/uL (4.8-10.8)
[2018-09-23] MEDS: Acetaminophen/Codeine 30-300mg Tablet PO PRN (08:18)
[2018-09-23] MEDS: Aspirin 81 mg Enteric Coated Tablet PO SCH (08:19)
[2018-09-23] MEDS: Vancomycin HCl 1.5 GM in Sodium Chloride 0.9% 250 ML 300 ML IVPB SCH (09:32)
[2018-09-23] MEDS: Communication Order-Pharmacy FS SCH (16:34)
[2018-09-23 16:45] VITALS: BP 136/77; TEMP 97.7
--- NOTE | 2018-09-28 05:21 | PQF ---
[facility] POST DISCHARGE CLINICAL DOCUMENTATION IMPROVEMENT CLARIFICATION FORM l Todays Date: 09/28/18 l Patients Name LISBETH MCCARTHY l l Admit Date 09/22/18 l Disch Date 09/23/18 Second Watch Sergeant Name Miles Esquivel Email: [email or web address] Cell: [phone] To be completed by Second Watch Sergeant: Present Clinical Indicators - Signs / Symptoms Results and Location in Medical Record [ ] Documentation of: [ ] [ ] Documentation of: [ ] [ ] Documentation of: [ ] [ ] Documentation of: [ ] [ ] Risks [ ] [ ] [ ] Treatment [ ] L Knee Infection Query for area and depth of debridement [ ] [ ] To be completed by Physician: IVANIA VILLAREAL The documentation in this patients record requires clarification to ensure coding compliance and accuracy. Check the appropriate box and include in your discharge summary. [ ] ___anterior knee wound infection, 2 cm long, 1 cm deep [ ] [ ] [ ] Please check this box if this does not apply to this patient [ ] Unable to determine [ ] Other diagnosis: Review the following information and exercise your independent professional judgment in responding to the clarification. Based upon the clinical findings, risk factors, and treatment, please clarify if you are treating one of the above probable or suspected diagnoses. Physician Signature: Date Time MTDD
== END 2018-09-23 18:25 | disposition home or self-care (01) ==
LOC: SJJU 13:29 → EDUNIT# 13:29
PROVIDERS: ADMIT Orthopaedic Surgery; ATTEND Orthopaedic Surgery
PROC: 0JBP0ZZ Excision of Left Lower Leg Subcutaneous Tissue and Fascia, Open Approach (ICD-10-PCS; principal; 2018-09-22)
DX: T81.41XA Infection following a procedure, superficial incisional surgical site, initial encounter (principal); I10 Essential (primary) hypertension; E11.9 Type 2 diabetes mellitus without complications; J45.909 Unspecified asthma, uncomplicated; Z96.653 Presence of artificial knee joint, bilateral; Z79.84 Long term (current) use of oral hypoglycemic drugs; Z79.899 Other long term (current) drug therapy; Z88.0 Allergy status to penicillin; Z91.012 Allergy to eggs
CPT/HCPCS: 11042; 85025; 87070; 87075; 87077; 87116; 87186; 87205; 87206; 96365; 96366; 97116; 97139; G0378; 36415; J0696; J1100; J2001; J2405; J2704; J3010; J3370; J3490; J7050